=== PATIENT | male | born 1985 | race Caucasian/White ===

== ENCOUNTER 2016-12-31 18:35 | Emergency (ER) | payer BC, OTHER ==
[~2016-12-31] VITALS: Ht 175.3 cm; Wt 113.6 kg
[2016-12-31 18:35] VITALS: BP 162/98
[2016-12-31] MEDS ORDERED: CARB200T98 (18:50)
[2016-12-31] MEDS ORDERED: IBUPROFEN 800 MG TAB PO ONE (21:00)
--- NOTE | 2016-12-31 22:10 | REPUSA ---
CLINICAL HISTORY: Pain. COMMENTS: Real time sonography with duplex doppler of the right lower extremity was performed with attention to the major deep venous structures. Evaluation reveals the right common femoral, superficial femoral and popliteal veins to be completely compressible without intraluminal thrombus. There is normal spontaneous phasic flow and augmentation . The greater saphenous/common femoral vein junction is patent. IMPRESSION: No evidence of DVT in right lower extremity. Thank you for your kind referral of this patient.
--- NOTE | 2017-01-01 01:21 | REP ---
Clinical: Pain . Technique: AP, lateral, bilateral oblique views right ankle . Findings: No acute fracture or dislocation. Skeletal structures and joint spaces are intact and normal. Ankle mortise appears stable. No subcutaneous emphysema or radiodense foreign body. Impression: Normal right ankle radiograph series. Signed by Frantz Cuevas MD 01/01/2017 01:12 A
== END 2016-12-31 22:00 | disposition home or self-care (01) ==
LOC: M ED 18:35
DX: M25.571 Pain in right ankle and joints of right foot (principal); M25.471 Effusion, right ankle

== ENCOUNTER → 2017-04-19 | Outpatient (CLI) | payer BC ==
[~2017-04-19] MED LIST: CARB200T98
[2017-04-19 13:01] LABS: BASO # 0.1 10^3/uL (0.0-0.2); BASO % 1.2 % (0.0-1.0); EOS # 0.2 10^3/uL (0.0-0.50); EOS % 4.1 % (0.0-3.0); IMMATURE GRANULOCYTE % 0.3 % (0-0); LYMPH # 1.7 10^3/uL (1.5-6.5); LYMPH % 29.1 % (24.0-44.0); MEAN CORPUSCULAR HEMOGLOBIN 28.3 pg (27.0-33.0); MEAN CORPUSCULAR HGB CONC 32.8 g/dl (32.0-36.5); MEAN CORPUSCULAR VOLUME 86.1 fl (80.0-96.0); MONO # 0.4 10^3/uL (0.0-0.8); MONO % 7.1 % (0.0-5.0); NEUTROPHILS # 3.4 10^3/uL (1.8-7.7); NEUTROPHILS % 58.2 % (36.0-66.0); PLATELET COUNT, AUTOMATED 280 10^3/uL (150-450); RED CELL DISTRIBUTION WIDTH 12.8 % (11.5-14.5); WHITE BLOOD COUNT 5.8 10^3/uL (4.0-10.0)
[2017-04-19 13:30] LABS: ALBUMIN 3.9 GM/DL (3.2-5.2); ALBUMIN/GLOBULIN RATIO 1.26 (1.00-1.93); ALKALINE PHOSPHATASE 109 U/L (45-117); ALT/SGPT 55 U/L (12-78); ANION GAP 5 MEQ/L (8-16); AST/SGOT 26 U/L (7-37); BILIRUBIN,TOTAL 0.3 MG/DL (0.2-1.0); BLOOD UREA NITROGEN 21 MG/DL (7-18); CALCIUM LEVEL 9.5 MG/DL (8.5-10.1); CARBON DIOXIDE LEVEL 29 MEQ/L (21-32); CHLORIDE LEVEL 105 MEQ/L (98-107); CHOLESTEROL LEVEL 230 MG/DL (<200); CREATININE FOR GFR 0.87 MG/DL (0.70-1.30); FREE T4 0.98 NG/DL (0.76-1.46); GLOMERULAR FILTRATION RATE > 60.0 (>60); GLUCOSE, FASTING 86 MG/DL (70-105); POTASSIUM SERUM 4.9 MEQ/L (3.5-5.1); SODIUM LEVEL 139 MEQ/L (136-145); TRIGLYCERIDES LEVEL 82 MG/DL (<150)
== END ==
LOC: M WUC 09:09
PROVIDERS: ATTEND Nurse Practitioner Family
DX: E66.01 Morbid (severe) obesity due to excess calories (principal); R10.30 Lower abdominal pain, unspecified; Z13.220 Encounter for screening for lipoid disorders

== ENCOUNTER → 2018-02-23 | Outpatient (REF) | payer BC ==
[2018-02-23 16:41] LABS: ALBUMIN 3.9 GM/DL (3.2-5.2); ALBUMIN/GLOBULIN RATIO 1.15 (1.00-1.93); ALKALINE PHOSPHATASE 101 U/L (45-117); ALT/SGPT 46 U/L (12-78); ANION GAP 6 MEQ/L (8-16); AST/SGOT 21 U/L (7-37); BILIRUBIN,TOTAL 0.5 MG/DL (0.2-1.0); BLOOD UREA NITROGEN 16 MG/DL (7-18); CALCIUM LEVEL 8.8 MG/DL (8.5-10.1); CARBON DIOXIDE LEVEL 29 MEQ/L (21-32); CHLORIDE LEVEL 107 MEQ/L (98-107); CHOLESTEROL LEVEL 200 MG/DL (<200); CREATININE FOR GFR 0.88 MG/DL (0.70-1.30); GLOMERULAR FILTRATION RATE > 60.0 (>60); GLUCOSE, FASTING 78 MG/DL (70-100); HDL CHOLESTEROL 50 MG/DL (>40); LDL CHOLESTEROL 132 MG/DL (<100); NON-HDL-C 150 MG/DL; POTASSIUM SERUM 4.1 MEQ/L (3.5-5.1); SODIUM LEVEL 142 MEQ/L (136-145); TOTAL PROTEIN 7.3 GM/DL (6.4-8.2); TRIGLYCERIDES LEVEL 89 MG/DL (<150)
== END ==
LOC: M LABNEURO 14:27
DX: E78.5 Hyperlipidemia, unspecified (principal)
CPT/HCPCS: 80053

== ENCOUNTER → 2019-03-16 | Outpatient (CLI) | payer BC ==
--- NOTE | 2019-03-16 17:37 | REP ---
Duplex extremity venous ultrasound: Right lower extremity. History: Pain and swelling right lower extremity. Rule out DVT. Findings: The deep veins are anechoic and fully compressible from the groin to the popliteal fossa in the right lower extremity. Color flow imaging is homogeneous. Spectral Doppler interrogation demonstrates intact respiratory variation in flow and normal manual augmentation of flow. There is no evidence of deep vein thrombosis. Impression: Negative right lower extremity duplex venous ultrasound. No evidence of deep vein thrombosis. Electronically Signed by Paulino Chatman MD 03/16/2019 06:51 P
== END ==
LOC: M RAD 16:07
PROVIDERS: ATTEND Physician Assistant Surgical
DX: M79.661 Pain in right lower leg (principal)

== ENCOUNTER → 2019-05-24 | Outpatient (CLI) | payer BC ==
[2019-05-24 17:23] LABS: BASO # 0.1 10^3/uL (0.0-0.2); BASO % 0.8 % (0.0-1.0); EOS # 0.2 10^3/uL (0.0-0.5); EOS % 3.8 % (0.0-3.0); HEMATOCRIT 44.4 % (42.0-52.0); HEMOGLOBIN 14.4 g/dl (13.5-17.5); LYMPH # 1.9 10^3/uL (1.5-5.0); LYMPH % 31.5 % (24.0-44.0); MEAN CORPUSCULAR HEMOGLOBIN 28.3 pg (27.0-33.0); MEAN CORPUSCULAR HGB CONC 32.4 g/dl (32.0-36.5); MEAN CORPUSCULAR VOLUME 87.4 fl (80.0-96.0); MONO # 0.5 10^3/uL (0.0-0.8); MONO % 7.7 % (0.0-5.0); NEUTROPHILS # 3.4 10^3/uL (1.5-8.5); NEUTROPHILS % 55.7 % (36.0-66.0); PLATELET COUNT, AUTOMATED 260 10^3/uL (150-450); RED BLOOD COUNT 5.08 10^6/uL (4.30-6.10); WHITE BLOOD COUNT 6.1 10^3/uL (4.0-10.0)
[2019-05-24 17:41] LABS: ALBUMIN 3.8 GM/DL (3.2-5.2); ALT/SGPT 63 U/L (12-78); BILIRUBIN,TOTAL 0.7 MG/DL (0.2-1.0); BLOOD UREA NITROGEN 14 MG/DL (7-18); CALCIUM LEVEL 8.9 MG/DL (8.5-10.1); CARBON DIOXIDE LEVEL 27 MEQ/L (21-32); CHLORIDE LEVEL 105 MEQ/L (98-107); CHOLESTEROL LEVEL 213 MG/DL (<200); CHOLESTEROL RISK RATIO 4.346 (<5); CREATININE FOR GFR 0.83 MG/DL (0.70-1.30); GLOMERULAR FILTRATION RATE > 60.0 (>60); GLUCOSE, FASTING 83 MG/DL (70-100); HDL CHOLESTEROL 49 MG/DL (>40); LDL CHOLESTEROL 147 MG/DL (<100); NON-HDL-C 164 MG/DL; POTASSIUM SERUM 4.1 MEQ/L (3.5-5.1); SODIUM LEVEL 139 MEQ/L (136-145); TOTAL PROTEIN 6.5 GM/DL (6.4-8.2); TRIGLYCERIDES LEVEL 87 MG/DL (<150)
== END ==
LOC: M WUC 14:19
PROVIDERS: ATTEND Nurse Practitioner Family
DX: Z00.00 Encounter for general adult medical examination without abnormal findings (principal)

== ENCOUNTER → 2019-07-25 | Outpatient (REF) | payer BC | LOC: M LAB REF 17:02 | PROVIDERS: ATTEND Physician Assistant Medical | DX: R50.9 Fever, unspecified (principal) ==

== ENCOUNTER → 2019-08-19 | Outpatient (REF) | payer BC | LOC: M LAB REF 15:27 | PROVIDERS: ATTEND Physician Assistant | DX: Z11.59 Encounter for screening for other viral diseases (principal); R50.9 Fever, unspecified | CPT/HCPCS: 87486; 87581; 87633; 87798; U0002 ==

== ENCOUNTER → 2020-04-07 | Outpatient (REF) | payer BC | LOC: M WUC 19:49 | PROVIDERS: ATTEND Physician Assistant | DX: J02.9 Acute pharyngitis, unspecified (principal) ==

== ENCOUNTER 2020-04-11 20:10 | Emergency (ER) | payer BC ==
[~2020-04-11] VITALS: Ht 175.3 cm; Wt 104.4 kg
[2020-04-11] MEDS ORDERED: NS 1,000 ML IV ONE (21:00)
[2020-04-11 21:01] LABS: BASO # 0.1 10^3/uL (0.0-0.2); BASO % 0.8 % (0.0-1.0); EOS # 0.3 10^3/uL (0.0-0.5); EOS % 3.9 % (0.0-3.0); HEMATOCRIT 46.8 % (42.0-52.0); HEMOGLOBIN 15.2 g/dl (13.5-17.5); LYMPH # 2.5 10^3/uL (1.5-5.0); LYMPH % 28.4 % (24.0-44.0); MEAN CORPUSCULAR HEMOGLOBIN 27.8 pg (27.0-33.0); MEAN CORPUSCULAR HGB CONC 32.5 g/dl (32.0-36.5); MEAN CORPUSCULAR VOLUME 85.7 fl (80.0-96.0); MONO # 0.6 10^3/uL (0.0-0.8); MONO % 6.8 % (0.0-5.0); NEUTROPHILS # 5.2 10^3/uL (1.5-8.5); NEUTROPHILS % 59.6 % (36.0-66.0); PLATELET COUNT, AUTOMATED 286 10^3/uL (150-450); RED BLOOD COUNT 5.46 10^6/uL (4.30-6.10); WHITE BLOOD COUNT 8.7 10^3/uL (4.0-10.0)
[2020-04-11 21:12] LABS: INR 0.93; PROTHROMBIN TIME 12.7 SECONDS (12.5-14.3)
--- NOTE | 2020-04-11 21:14 | REPVR ---
PROCEDURE INFORMATION: Exam: XR Chest, 2 Views Exam date and time: 04/11/2020 9:03 PM Age: 34 years old Clinical indication: Shortness of breath; Additional info: Altered mental status TECHNIQUE: Imaging protocol: XR of the chest Views: 2 views. COMPARISON: CR Chest, 2 view PA, Lat 08/23/2014 9:25 PM FINDINGS: Lungs: Unremarkable. No consolidation. Pleural space: Unremarkable. No pleural effusion. No pneumothorax. Heart/Mediastinum: The heart and mediastinum are unchanged. Bones/joints: Unremarkable. Soft tissues: There are generous overlying soft tissues. IMPRESSION: Negative chest without significant change from 08/23/2014. Electronically signed by: Samm Pepper On 04/11/2020 21:14:21 PM
[2020-04-11 21:32] LABS: ALBUMIN 3.9 GM/DL (3.2-5.2); ALT/SGPT 59 U/L (12-78); BILIRUBIN,DIRECT 0.1 MG/DL (0.0-0.2); BILIRUBIN,TOTAL 0.5 MG/DL (0.2-1.0); BLOOD UREA NITROGEN 19 MG/DL (7-18); CALCIUM LEVEL 9.2 MG/DL (8.5-10.1); CARBON DIOXIDE LEVEL 30 MEQ/L (21-32); CHLORIDE LEVEL 102 MEQ/L (98-107); CK-MB VALUE MASS < 1.0 NG/ML (<3.6); CPK CREATINE PHOSPHOKINASE 123 U/L (39-308); CREATININE FOR GFR 1.04 MG/DL (0.70-1.30); GLOMERULAR FILTRATION RATE > 60.0 (>60); GLUCOSE, FASTING 143 MG/DL (70-100); LIPASE 73 U/L (73-393); MB/CK RELATIVE INDEX 0.81 (< OR =4); POTASSIUM SERUM 3.9 MEQ/L (3.5-5.1); SODIUM LEVEL 139 MEQ/L (136-145); TOTAL PROTEIN 7.3 GM/DL (6.4-8.2); TROPONIN I < 0.02 NG/ML (< 0.10)
--- NOTE | 2020-04-11 22:35 | REPVR ---
PROCEDURE INFORMATION: Exam: CT Head Without Contrast Exam date and time: 04/11/2020 10:22 PM Age: 34 years old Clinical indication: Altered mental status/memory loss; Additional info: Altered mental status/staring spell TECHNIQUE: Imaging protocol: Computed tomography of the head without contrast. Radiation optimization: All CT scans at this facility use at least one of these dose optimization techniques: automated exposure control; mA and/or kV adjustment per patient size (includes targeted exams where dose is matched to clinical indication); or iterative reconstruction. COMPARISON: CT Head without contrast 08/23/2014 9:18 PM FINDINGS: Brain: Normal. No hemorrhage. Unremarkable white matter. No mass effect. Cerebral ventricles: No ventriculomegaly. Bones/joints: Unremarkable. No acute fracture. Paranasal sinuses: Visualized sinuses are unremarkable. No fluid levels. Mastoid air cells: Visualized mastoid air cells are well aerated. Soft tissues: Unremarkable. IMPRESSION: Negative noncontrast head CT without change from 08/23/2014. Electronically signed by: Samm Pepper On 04/11/2020 22:34:50 PM
[2020-04-11 23:05] LABS: AMPHETAMINES LEVEL URINE NEGATIVE (NEGATIVE); BARBITURATES URINE NEGATIVE (NEGATIVE); BENZODIAZEPINES URINE NEGATIVE (NEGATIVE); CANNABINOIDS URINE NEGATIVE (NEGATIVE); COCAINE METABOLITE URINE NEGATIVE (NEGATIVE); METHADONE URINE NEGATIVE (NEGATIVE); OPIATES URINE NEGATIVE (NEGATIVE); PHENCYCLIDINE URINE NEGATIVE (NEGATIVE)
[2020-04-12 00:55] VITALS: BP 128/71
--- NOTE | 2020-04-13 18:46 | ECGEPIP ---
[facility] - ED Test Date: 2020-04-11 Pat Name: RENÉ CHIU Department: Room: - Gender: Male Ekg Tech: LR : 1985 Requested By: KAREN Farias Order Number: [id number] Reading MD: Alexia Ortiz Measurements Intervals [place] Rate: 95 P: 26 DE: 145 QRS: 8 QRSD: 89 T: 24 QT: 324 QTc: 409 Interpretive Statements SINUS RHYTHM INCREASED RATE 08/23/14 Electronically Signed on 04-13-2020 18:46:12 EST by Alexia Ortiz
== END 2020-04-12 01:06 | disposition home or self-care (01) ==
LOC: M ED 20:10
DX: R41.82 Altered mental status, unspecified (principal); Z86.69 Personal history of other diseases of the nervous system and sense organs

== ENCOUNTER 2020-07-01 11:26 | Emergency (ER) | payer BC ==
[~2020-07-01] VITALS: Ht 175.3 cm; Wt 147.9 kg
--- OUTSIDE RECORDS SUMMARY | 2020-07-01 11:33 | CCD | Continuity of Care Document ---
Author Author Easton MARLOW [place] Organization Unknown Address [address] [place] [address] [place] [address] Phone [phone] Care Team Providers Care Field Coordinator Name Role Phone Joaquin Co Publi AUTM [phone] Problems Description No Information Available Social History Type Date Description Comments Sex Unknown Smokeless Tobacco Never Used Smokeless Tobacco ETOH Use Occasionally consumes alcohol Tobacco Use Start: Unknown Patient has never smoked Tobacco Use Start: Unknown The Patient Has Never Vaped Smoking Status Reviewed: 05/31/20 The Patient Has Never Vaped Allergies, Adverse Reactions, Alerts Description No Known Drug Allergies Medications Active Medications SIG Qnty Indications Ordering Provide r Date Albuterol Sulfate HFA 108(90Base) mcg/Act Aerosol 1 puff inhaled 3 x per day prn for sob/wheezing 8.500gm Deandre Buck JR., M.D. 03/06/2020 Carbamazepine ER 200mg Caps ER 12H R as needed - has not taken in a while Unknown Amitriptyline HCL 150mg Tablets as needed - has not taken in a while Unknown Claritin 10mg Tablets 1 by mouth every day Unknown Tylenol at 2p Unknown History Medications Doxycycline Hyclate 100mg Tablets 1 tab by mouth twice a day x 10 days 20tabs Deandre Zavala M.D. 03/06/2020 - 03/06/2020 Levofloxacin 750mg Tablets 1 tab daily x 5 days 5tabs Deandre Buck JR., M.D. 10/2019 - 05/02/2020 Immunizations Description No Information Available Vital Signs Date Vital Result Comment 05/31/2020 5:29pm BP Systolic 130 mmHg BP Diastolic 87 mmHg Heart Rate 81 /min Respiratory Rate 16 /min O2 % BldC Oximetry 96 % Body Temperature 98.1 F Weight 290.00 lb Height 69 inches 5'9" BMI (Body Mass Index) 42.8 kg/m2 Pain Level 9 04/07/2020 5:19pm BP Systolic 126 mmHg BP Diastolic 86 mmHg Heart Rate 97 /min Respiratory Rate 16 /min O2 % BldC Oximetry 98 % Body Temperature 98.1 F Weight 290.00 lb Height 69 inches 5'9" BMI (Body Mass Index) 42.8 kg/m2 Pain Level 6 Results Test Acquired Date Facility Test Result H/L Range Note Laboratory test finding 04/07/2020 [facility] [address] [id number] [phone] Throat Culture FULL REPORT IN L <SEE NOTE> Normal 1 1 FULL REPORT IN LAB NOTES (eC W and [facility]). NORMAL ROLANDO PRESENT Procedures Description No Information Available Medical Devices Description No Information Available Encounters Type Date Location Provider Dx Diagnosis Office Visit 05/31/2020 5:40p Main Office WANDA Barajas J06 .9 Acute upper respiratory infection, unspecified Z20.828 Contact w and exposure to ot h viral communicable diseases Office Visit 04/07/2020 5:35p Main Office WANDA Silver J06.9 Acute upper respiratory infection, unspecified Z20.828 Contact w and exposure to ot h viral communicable diseases J02.9 Acute pharyngitis, unspecifi ed Office Visit 03/06/2020 5:35p Main Office WANDA Olivo J0 6.9 Acute upper respiratory infection, unspecified Z20.828 Contact w and exposure to ot h viral communicable diseases Assessments Date Code Description Provider 05/31/2020 J06.9 Acute upper respiratory infectio n, unspecified WANDA Barajas 05/31/2020 Z20.828 Contact with and (dodson spected) exposure to other viral communicable diseases WANDA Barajas 04/07/2020 J06.9 Acute upper respiratory infectio n, unspecified WANDA Silver 04/07/2020 Z20.828 Contact with and (dodson spected) exposure to other viral communicable diseases WANDA Silver 04/07/2020 J02.9 Acute pharyngitis, unspecified J WANDA Reeves 03/06/2020 J06.9 Acute upper respiratory infectio n, unspecified WANDA Olivo 03/06/2020 Z20.828 Contact with and (dodson spected) exposure to other viral communicable diseases WANDA Olivo Plan of Treatment No Information Available Functional Status Description No Information Available Mental Status Description No Information Available Referrals Description No Information Available
--- OUTSIDE RECORDS SUMMARY | 2020-07-01 11:33 | CCD | Continuity of Care Document ---
Author Author Easton MARLOW [place] Organization Unknown Address [address] [place] [address] [place] [address] Phone [phone] Care Team Providers Care Credit Collections Specialist Name Role Phone Joaquin Co Publi AUTM [phone] Problems Description No Information Available Social History [...] H/L Range Note Laboratory test finding 04/07/2020 [facility] [address] [id number] [phone] Throat Culture FULL REPORT IN L <SEE [...]
--- OUTSIDE RECORDS SUMMARY | 2020-07-01 11:34 | CCD | Continuity of Care Document ---
Author Author Easton DHILLON P.A.-C. Organization Unknown Address [address] [place] [address] Phone [phone] Care Team Providers Care Heavy Forger Name Role Phone DamienfrankieOsorio [employer]MARKETING [employer]DR[employer]ISER AUTM [phone] Problems Description No Information Available Social History Type Date Description Comments Sex Unknown Tobacco Use Start: Unknown Patient has never smoked Tobacco Use Start: Unknown He rarely drinks alcohol Allergies, Adverse Reactions, Alerts Description No Known Drug Allergies Medications Active Medications SIG Qnty Indications Ordering Provide r Date Ativan 0.5mg Tablets 1 by mouth one hour prior to mri, may repeat once if necessary 2tabs R40.4 Charito Qureshi M.D. 04/17/2020 Sumatriptan Succinate 100mg Tablet s Take 1/2 To 1 Tablet By Mouth AT On Set Of Headache, May Repeat In Two Hours If Necessary Maximum Daily Dose = Two Tablets 9tabs Charito Qureshi M.D. 10/15/2012 Immunizations Description No Information Available Vital Signs Date Vital Result Comment 04/17/2020 7:09am BP Systolic 120 mmHg BP Diastolic 90 mmHg Heart Rate 76 /min Respiratory Rate 16 /min 07/19/2019 9:46am BP Systolic 110 mmHg BP Diastolic 80 mmHg Heart Rate 76 /min Respiratory Rate 16 /min Results Description No Information Available Procedures Description No Information Available Medical Devices Description No Information Available Encounters Type Date Location Provider Dx Diagnosis Office Visit 04/17/2020 9:30a Main office - [facility] Kim goyal P.A.-C. R40.4 Transient alteration of awareness F41.1 Generalized anxiety disorder Assessments Date Code Description Provider 04/17/2020 R40.4 Transient alteration of awarenes s Kim Dhillon P.A.-C. 04/17/2020 F41.1 Generalized anxiety disorder Nadira Dhillon P.A.-C. Plan of Treatment Future Appointment(s):* 07/18/2020 8:15 am - Kim Dhillon P.A.-C. at Main office [facility] * 06/12/2020 8:15 am - EEG at [facility] 04/17/2020 - Kim Dhillon P.A.-C.* R40.4 Transient alteration of awareness* New Medication:* Ativan 0.5 mg - 1 by mouth one hour prior to mri, may repeat once if necessary * Comments:* It sounds as though his episode was related to a severe laughing episode with decreased oxygenation. Schedule MRI brain and EEG. He was advised not to drive if he is not feeling well. There was no LOC. Prescription for Ativan to take prior to MRI sent eRx. CUSTOMER PRICING MANAGER # [id number]. * F41.1 Generalized anxiety disorder* Comments:* He admits that his anxiety is not always controlled. He may need to consider returning to behavioral health. * Follow up:* 3 months Functional Status Description No Information Available Mental Status Description No Information Available Referrals Description No Information Available
--- OUTSIDE RECORDS SUMMARY | 2020-07-01 11:34 | CCD | Continuity of Care Document ---
Author Easton Cagle Organization Unknown Address [address] [place] [address] [place] [address] Phone [phone] Care Team Providers Care Bleacher Lard Name Role Phone Joaquin Co Publi AUTM [phone] Problems Description No Information Available Social History Type Date Description Comments Sex Unknown ETOH Use Occasionally consumes alcohol Tobacco Use Start: Unknown Patient has never smoked Smoking Status Reviewed: 04/07/20 Patient has never smoked Allergies, Adverse Reactions, Alerts Description No Known Drug Allergies Medications Active Medications SIG Qnty Indications Ordering Provide r Date Albuterol Sulfate HFA 108(90Base) mcg/Act Aerosol 1 puff inhaled 3 x per day prn for sob/wheezing 8.500gm Deandre Buck JR., M.D. 03/06/2020 Levofloxacin 750mg Tablets 1 tab daily x 5 days 5tabs Deandre Buck JR., M.D. 10/2019 Carbamazepine ER 200mg Caps ER 12H R as needed - has not taken in a while Unknown Amitriptyline HCL 150mg Tablets as needed - has not taken in a while Unknown Claritin 10mg Tablets 1 by mouth every day Unknown History Medications Doxycycline Hyclate 100mg Tablets 1 tab by mouth twice a day x 10 days 20tabs Deandre Zavala M.D. 03/06/2020 - 03/06/2020 Immunizations Description No Information Available Vital Signs Date Vital Result Comment 04/07/2020 5:19pm BP Systolic 126 mmHg BP Diastolic 86 mmHg Heart Rate 97 /min Respiratory Rate 16 /min O2 % BldC Oximetry 98 % Body Temperature 98.1 F Weight 290.00 lb Height 69 inches 5'9" BMI (Body Mass Index) 42.8 kg/m2 Pain Level 6 03/06/2020 6:33pm BP Systolic 140 mmHg BP Diastolic 88 mmHg Heart Rate 95 /min O2 % BldC Oximetry 98 % Body Temperature 98.4 F Weight 285.00 lb Height 69 inches 5'9" BMI (Body Mass Index) 42.1 kg/m2 Pain Level 5 Results Test Acquired Date Facility Test Result H/L Range Note Laboratory test finding 04/07/2020 [address] [place] [id number] [phone] Throat Culture FULL REPORT IN L <SEE NOTE> Normal 1 1 FULL REPORT IN LAB NOTES (eC W and [facility]). NORMAL ROLANDO PRESENT Procedures Description No Information Available Medical Devices Description No Information Available Encounters Type Date Location Provider Dx Diagnosis Office Visit 04/07/2020 5:35p Main Office WANDA Silver J06.9 Acute upper respiratory infection, unspecified Z20.828 Contact w and exposure to ot h viral communicable diseases J02.9 Acute pharyngitis, unspecifi ed Office Visit 03/06/2020 5:35p Main Office WANDA Olivo J0 6.9 Acute upper respiratory infection, unspecified Z20.828 Contact w and exposure to ot h viral communicable diseases Assessments Date Code Description Provider 04/07/2020 J06.9 Acute upper respiratory infectio n, [...]
--- OUTSIDE RECORDS SUMMARY | 2020-07-01 11:34 | CCD ---
Author Author [facility] Organization [facility] Address Unknown Phone Unavailable Support Name Relationship Address Phone NECHAY PAPER Next Of Kin [address] [place] [address] YARED CHIU Next Of Kin [address] [facility] [address] [place] [phone] Dilpolly DDTheo, Nathalie Next Of Kin [address] [place] [phone] Dilpolly DDS, Nathalie Next Of Kin [address] [place] [phone] [place] [address] YARED GLOVER Next Of Kin [address] [facility] [address] [place] [address] WATNCTYSD* Next Of Kin [address] [place] [address] RENÉ CHIU SR Next Of Kin [address] [place] [phone] BRADEN CHOPPER Next Of Kin Unknown Unavailable UNKNOWN Next Of Kin Unknown Unavailable PRICECHOP Next Of Kin [address] [place] [address] RENÉ CHIU Next Of Kin [address] o [address] [place] [address] Sebastián CHIU Next Of Kin [address] [place] [address] YARED CHIU ECON [address] [place] [phone] Care Team Providers Care Glass Inserter Name Role Phone Marnie Houston PA-C Unavailable Unavailabl e Marnie Houston PA-C Unavailable Unavailabl e Fish, [facility], PA-C Unavailable Unavailabl e Fish, [facility], PA-C Unavailable Unavailabl e Fish, [facility], PA-C Unavailable Unavailabl e Fish, [facility], PA-C Unavailable Unavailabl e Fish, [facility], PA-C Unavailable Unavailabl e Fish, [facility], PA-C Unavailable Unavailabl e Fish, [facility], PA-C Unavailable Unavailabl e Fish, [facility], PA-C Unavailable Unavailabl e Fish, [facility], PA-C Unavailable Unavailabl e Fish, [facility], PA-C Unavailable Unavailabl e Fish, [facility], PA-C Unavailable Unavailabl e Fish, [facility], PA-C Unavailable Unavailabl e Fish, [facility], PA-C Unavailable Unavailabl e Fish, [facility], PA-C Unavailable Unavailabl e Fish, [facility], PA-C Unavailable Unavailabl e Fish, [facility], PA-C Unavailable Unavailabl e Fish, [facility], PA-C Unavailable Unavailabl e Fish, [facility], PA-C Unavailable Unavailabl e Fish, [facility], PA-C Unavailable Unavailabl e Fish, [facility], PA-C Unavailable Unavailabl e Fish, [facility], PA-C Unavailable Unavailabl e Fish, [facility], PA-C Unavailable Unavailabl e Fish, [facility], PA-C Unavailable Unavailabl e Fish, [facility], PA-C Unavailable Unavailabl e Fish, [facility], PA-C Unavailable Unavailabl e Fish, [facility], PA-C Unavailable Unavailabl e Fish, [facility], PA-C Unavailable Unavailabl e Fish, [facility], PA-C Unavailable Unavailabl e Fish, [facility], PA-C Unavailable Unavailabl e Fish, [facility], PA-C Unavailable Unavailabl e Fish, [facility], PA-C Unavailable Unavailabl e Trickey, J Kim PA Unavailable Unavailable Trickey, J Kim PA Unavailable Unavailable Trickey, J Kim PA Unavailable Unavailable Trickey, J Kim PA Unavailable Unavailable Trickey, J Kim PA Unavailable Unavailable Trickey, J Kim PA Unavailable Unavailable Trickey, J Kim PA Unavailable Unavailable Trickey, J Kim PA Unavailable Unavailable Trickey, J Kim PA Unavailable Unavailable Trickey, J Kim PA Unavailable Unavailable Trickey, J Kim PA Unavailable Unavailable Trickey, J Kim PA Unavailable Unavailable Trickey, J Kim PA Unavailable Unavailable Trickey, J Kim PA Unavailable Unavailable Trickey, J Kim PA Unavailable Unavailable Trickey, J Kim PA Unavailable Unavailable Trickey, J Kim PA Unavailable Unavailable Trickey, J Kim PA Unavailable Unavailable Trickey, J Kim PA Unavailable Unavailable Trickey, J Kim PA Unavailable Unavailable Trickey, J Kim PA Unavailable Unavailable Trickey, J Kim PA Unavailable Unavailable Trickey, J Kim PA Unavailable Unavailable Trickey, J Kim PA Unavailable Unavailable Trickey, J Kim PA Unavailable Unavailable Trickey, J Kim PA Unavailable Unavailable Trickey, J Kim PA Unavailable Unavailable Trickey, J Kim PA Unavailable Unavailable Trickey, J Kim PA Unavailable Unavailable Trickey, J Kim PA Unavailable Unavailable Trickey, J Kim PA Unavailable Unavailable Trickey, J Kim PA Unavailable Unavailable Trickey, J Kim PA Unavailable Unavailable Trickey, J Kim PA Unavailable Unavailable Trickey, J Kim PA Unavailable Unavailable Trickey, J Kim PA Unavailable Unavailable Trickey, J Kim PA Unavailable Unavailable Trickey, J Kim PA Unavailable Unavailable Trickey, J Kim PA Unavailable Unavailable Trickey, J Kim PA Unavailable Unavailable Trickey, J Kim PA Unavailable Unavailable Trickey, J Kim PA Unavailable Unavailable Trickey, J Kim PA Unavailable Unavailable Trickey, J Kim PA Unavailable Unavailable Trickey, J Kim PA Unavailable Unavailable Trickey, J Kim PA Unavailable Unavailable Trickey, J Kim PA Unavailable Unavailable Trickey, J Kim PA Unavailable Unavailable Trickey, J Kim PA Unavailable Unavailable Trickey, J Kim PA Unavailable Unavailable Trickey, J Kim PA Unavailable Unavailable Trickey, J Kim PA Unavailable Unavailable Marnie Houston MPAS, PA-C Unavailable Unavailabl e Marnie Houston MPAS, PA-C Unavailable Unavailabl e Marnie Houston MPAS, PA-C Unavailable Unavailabl e Fish, [facility], PA-C Unavailable Unavailabl e Fish, [facility], PA-C Unavailable Unavailabl e Fish, [facility], PA-C Unavailable Unavailabl e Fish, [facility], PA-C Unavailable Unavailabl e Fish, [facility], PA-C Unavailable Unavailabl e Fish, [facility], PA-C Unavailable Unavailabl e Fish, [facility], PA-C Unavailable Unavailabl e Fish, [facility], PA-C Unavailable Unavailabl e Fish, [facility], PA-C Unavailable Unavailabl e Fish, [facility], PA-C Unavailable Unavailabl e Fish, [facility], PA-C Unavailable Unavailabl e Fish, [facility], PA-C Unavailable Unavailabl e Fish, [facility], PA-C Unavailable Unavailabl e Fish, [facility], PA-C Unavailable Unavailabl e Fish, [facility], PA-C Unavailable Unavailabl e Fish, [facility], PA-C Unavailable Unavailabl e Fish, [facility], PA-C Unavailable Unavailabl e Fish, [facility], PA-C Unavailable Unavailabl e Fish, [facility], PA-C Unavailable Unavailabl e Fish, [facility], PA-C Unavailable Unavailabl e Fish, [facility], PA-C Unavailable Unavailabl e Fish, [facility], PA-C Unavailable Unavailabl e Fish, [facility], PA-C Unavailable Unavailabl e Fish, [facility], PA-C Unavailable Unavailabl e Fish, [facility], PA-C Unavailable Unavailabl e Fish, [facility], PA-C Unavailable Unavailabl e Fish, [facility], PA-C Unavailable Unavailabl e Fish, [facility], PA-C Unavailable Unavailabl e Fish, [facility], PA-C Unavailable Unavailabl e Fish, [facility], PA-C Unavailable Unavailabl e Campanaro, Mare Qiana PA Unavailable Unavailable Campanaro, Mare Qiana PA Unavailable Unavailable Campanaro, Mare Qiana PA Unavailable Unavailable Campanaro, Mare Qiana PA Unavailable Unavailable Campanaro, Mare Qiana PA Unavailable Unavailable Campanaro, Mare Qiana PA Unavailable Unavailable Campanaro, Mare Qiana PA Unavailable Unavailable Campanaro, Mare Qiana PA Unavailable Unavailable Campanaro, Mare Qiana PA Unavailable Unavailable Campanaro, Mare Qiana PA Unavailable Unavailable Campanaro, Mare Qiana PA Unavailable Unavailable Campanaro, Mare Qiana PA Unavailable Unavailable Campanaro, Mare Qiana PA Unavailable Unavailable Campanaro, Mare Qiana PA Unavailable Unavailable Campanaro, Mare Qiana PA Unavailable Unavailable Campanaro, Mare Qiana PA Unavailable Unavailable Campanaro, Mare Qiana PA Unavailable Unavailable Campanaro, Mare Qiana PA Unavailable Unavailable Dille, E Nathalie DDS Unavailable Unavailable Dille, E Nathalie DDS Unavailable Unavailable Dille, E Nathalie DDS Unavailable Unavailable Dilpolly, E Nathalie DDS Unavailable Unavailable Jarrett Olivas MD Unavailable Unavailable Jarrett Olivas MD Unavailable Unavailable Jarrett Olivas MD Unavailable Unavailable Jarrett Olivas MD Unavailable Unavailable Jarrett Olivas MD Unavailable Unavailable Jarrett Olivas MD Unavailable Unavailable Jarrett Olivas MD Unavailable Unavailable Jarrett Olivas MD Unavailable Unavailable Jarrett Olivas MD Unavailable Unavailable Jarrett Olivas MD Unavailable Unavailable Jarrett Olivas MD Unavailable Unavailable Jarrett Olivas MD Unavailable Unavailable Jarrett lOivas MD Unavailable Unavailable Jarrett Olivas MD Unavailable Unavailable Jarrett Olivas MD Unavailable Unavailable Jarrett Olivas MD Unavailable Unavailable Jarrett Olivas MD Unavailable Unavailable Jarrett Olivas MD Unavailable Unavailable Jarrett Olivas MD Unavailable Unavailable Jarrett Olivas MD Unavailable Unavailable Jarrett Olivas MD Unavailable Unavailable Jarrett Olivas MD Unavailable Unavailable Jarrett Olivas MD Unavailable Unavailable Jarrett Olivas MD Unavailable Unavailable Jarrett Olivas MD Unavailable Unavailable Jarrett Oliavs MD Unavailable Unavailable Jarrett Olivas MD Unavailable Unavailable Jarrett Olivas MD Unavailable Unavailable Vaneenenaam, Jarrett Simon MD Unavailable Unavailable Vaneenenaam, Jarrett Simon MD Unavailable Unavailable Vaneenenaam, Jarrett Simon MD Unavailable Unavailable Vaneenenaam, Jarrett Simon MD Unavailable Unavailable Vaneenenaam, Jarrett Simon MD Unavailable Unavailable Vaneenenaam, Jarrett Simon MD Unavailable Unavailable Vaneenenaam, Jarrett Simon MD Unavailable Unavailable Vaneenenaam, Jarrett Simon MD Unavailable Unavailable Vaneenenaam, Jarrett Simon MD Unavailable Unavailable Vaneenenaam, Jarrett Simon MD Unavailable Unavailable Vaneenenaam, Jarrett Simon MD Unavailable Unavailable Vaneenenaam, Jarrett Simon MD Unavailable Unavailable Vaneenenaam, Jarrett Simon MD Unavailable Unavailable Vaneenenaam, Jarrett Simon MD Unavailable Unavailable Elias, Mahogany Leigha PA Unavailable Unavailable Elias, Mahogany Leigha PA Unavailable Unavailable Elias, Mahogany Leigha PA Unavailable Unavailable Elias, Mahogany Leigha PA Unavailable Unavailable Elias, Mahogany Leigha PA Unavailable Unavailable Elias, Mahogany Leigha PA Unavailable Unavailable Elias, Mahogany Leigha PA Unavailable Unavailable Elias, Mahogany Leigha PA Unavailable Unavailable Elias, Mahogany Leigha PA Unavailable Unavailable Elias, Mahogany Leigha PA Unavailable Unavailable LETTIERE, A IVAN PA Unavailable Unavailable LETTIERE, A IVAN PA Unavailable Unavailable LETTIERE, A IVAN PA Unavailable Unavailable LETTIERE, A IVAN PA Unavailable Unavailable LETTIERE, A IVAN PA Unavailable Unavailable LETTIERE, A IVAN PA Unavailable Unavailable LETTIERE, A IVAN PA Unavailable Unavailable LETTIERE, A IVAN PA Unavailable Unavailable LETTIERE, A IVAN PA Unavailable Unavailable LETTIERE, A IVAN PA Unavailable Unavailable LETTIERE, A IVAN PA Unavailable Unavailable LETTIERE, A IVAN PA Unavailable Unavailable LETTIERE, A IVAN PA Unavailable Unavailable LETTIERE, A IVAN PA Unavailable Unavailable LETTIERE, A IVAN PA Unavailable Unavailable LETTIERE, A IVAN PA Unavailable Unavailable LETTIERE, A IVAN PA Unavailable Unavailable LETTIERE, A IVAN PA Unavailable Unavailable LETTIERE, A IVAN PA Unavailable Unavailable LETTIERE, A IVAN PA Unavailable Unavailable LETTIERE, A IVAN PA Unavailable Unavailable LETTIERE, A IVAN PA Unavailable Unavailable LETTIERE, A IVAN PA Unavailable Unavailable LETTIERE, A IVAN PA Unavailable Unavailable LETTIERE, A IVAN PA Unavailable Unavailable LETTIERE, A IVAN PA Unavailable Unavailable LETTIERE, A IVAN PA Unavailable Unavailable LETTIERE, A IVAN MUÑOZ Unavailable Unavailable LETTIERE, A IVAN MUÑOZ Unavailable Unavailable Re-disclosure Warning The records that you are about to access may contain information from federally-assisted alcohol or drug abuse programs. If such information is present, then the following federally mandated warning applies: This information has been disclosed to you from records protected by federal confidentiality rules (42 CFR part 2). The federal rules prohibit you from making any further disclosure of this information unless further disclosure is expressly permitted by the written consent of the person to whom it pertains or as otherwise permitted by 42 CFR part 2. A general authorization for the release of medical or other information is NOT sufficient for this purpose. The Federal rules restrict any use of the information to criminally investigate or prosecute any alcohol or drug abuse patient.The records that you are about to access may contain highly sensitive health information, the redisclosure of which is protected by Article 27-F of the [facility] Public Health law. If you continue you may have access to information: Regarding HIV / AIDS; Provided by facilities licensed or operated by the [facility] Office of Mental Health; or Provided by the [facility] Office for People With Developmental Disabilities. If such information is present, then the following [facility] mandated warning applies: This information has been disclosed to you from confidential records which are protected by state law. State law prohibits you from making any further disclosure of this information without the specific written consent of the person to whom it pertains, or as otherwise permitted by law. Any unauthorized further disclosure in violation of state law may result in a fine or chcf sentence or both. A general authorization for the release of medical or other information is NOT sufficient authorization for further disc losure. Family History Family Member Name Family Member Gender Family Member Status Date o f Status Description Data Source(s) Unknown Female Problem [facility] ([facility] Encounters Encounter Providers Location Date Indications Data Source(s ) Outpatient Attender: IVAN mac 05/31/2020 04:40:00 PM EST [facility] ([facility]) Outpatient Attender: Kim MUÑOZ [facility] 04/17/2020 08:30:00 AM EST [facility] ([facility]) Outpatient Attender: Leigha Peres Prim estefania 04/07/2020 04:35:00 PM EST [facility] ([facility] [place] [address] [facility] [address] 03/21/2020 12:00:00 AM EDT eCW1 ([facility]) Outpatient Attender: Qiana Peres Prim estefania 03/06/2020 05:35:00 PM EDT [facility] ([facility]) Outpatient Attender: Nathalie Butts [facility] 08/27/2019 09:01:03 P M EDT [facility] Outpatient Attender: Jarrett Olivas MD Physical Therap y 08/17/2019 03:45:00 PM EDT [facility] ([facility]) Outpatient Attender: Kim MUÑOZ [facility] 07/19/2019 07:00:00 AM EST [facility] ([facility]) Outpatient Attender: Chastity WOODALL PA-C Physical Therapy 07/06/2019 07:45:00 AM EST [facility] ([facility]) Outpatient Attender: Chastity WOODALL PA-C Physical Therapy 06/03/2019 02:15:00 PM EST [facility] ([facility]) [facility] [address] [facility] [address] 05/31/2019 12:00:00 AM EST eCW1 ([facility]) [facility] [address] [facility] [address] 05/20/2019 12:00:00 AM EST eCW1 ([facility]) Outpatient Referrer: Chastity WOODALL PA-C 05/17/2019 05:1 5:00 PM EST [facility] Outpatient Referrer: Chastity WOODALL PA-C 05/17/2019 05:1 4:00 PM EST [facility] Outpatient Referrer: Chastity WOODALL PA-C 05/17/2019 05:0 8:00 PM EST [facility] Outpatient Referrer: Chastity WOODALL PA-C 05/17/2019 05:0 8:00 PM EST [facility] Outpatient Referrer: Chastity WOODALL PA-C 05/17/2019 05:0 8:00 PM EST [facility] Outpatient Referrer: Chastity Celso WOODALL PA-C 05/17/2019 05:0 7:00 PM EST [facility] Outpatient Referrer: Chastity WOODALL PA-C 05/12/2019 09:4 4:00 AM EST [facility] Outpatient Referrer: Chastity WOODALL PA-C 05/04/2019 01:2 6:00 PM EST [facility] Immunizations Vaccine Date Status Description Data Source(s) IIV3. This is one of two codes replacing CVX 15, which is being retired. 05/20/2019 11:55:00 AM EST completed eCW1 ([facility]) Medications Medication Brand Name Start Date Product Form Dose Route Admi nistrative Instructions Pharmacy Instructions Status Indications Reaction Description Data Source(s) 0.5 mg 04/17/2020 12:00:00 AM EST tablet 2 TAKE ONE TABLET BY MOUTH ONE HOUR PRIOR TO MRI, MAY REPEAT ONCE IF NECESSARY MAXIMUM DAILY DOSE = TWO TABLETS TAKE ONE TABLET BY MOUTH ONE HOUR PRIOR TO MRI, MAY REPEAT ONCE IF NECESSARY MAXIMUM DAILY DOSE = TWO TABLETS SOLD: 04/18/2020 [facility] Lorazepam 0.5 MG Oral Tablet [Ativan] Ativan 04/17/2020 12:00:00 AM EST ORAL active MED[facility] ([facility]) Levofloxacin 750 MG Oral Tablet Levofloxacin 03/06/2020 12:00:00 AM EDT completed [facility] ([facility]) doxycycline hyclate 100 MG Oral Tablet Doxycycline Hyclate 1 12:00:00 AM EDT ORAL completed [facility] ([facility]) 90 mcg/actuation 03/06/2020 12:00:00 AM EDT HFA aerosol inha ler 8 INHALE ONE PUFF BY MOUTH THREE TIMES A DAY NEEDED FOR SHORTNESS OF BREATH OR WHEEZING INHALE ONE PUFF BY MOUTH THREE TIMES A DAY NEEDED FOR SHORTNESS OF BREATH OR WHEEZING SOLD: 03/06/2020 [facility] 60 ACTUAT Albuterol 0.09 MG/ACTUAT Metered Dose Inhaler Albu terol Sulfate HFA 03/06/2020 12:00:00 AM EDT RESPIRATORY active [facility] ([facility], [facility]) 750 mg 03/06/2020 12:00:00 AM EDT tablet 5 TAKE ONE TABLET BY MOUTH EVERY DAY FOR 5 DAYS TAKE ONE TABLET BY MOUTH EVERY DAY FOR 5 DAYS SOLD: 03/06/2020 [facility] 500 mg 02/22/2020 12:00:00 AM EDT tablet 20 TAKE ONE TABLET BY MOUTH EVERY 12 HOURS WITH FOOD FOR 10 DAYS TAKE ONE TABLET BY MOUTH EVERY 12 HOURS WITH FOOD FOR 10 DAYS SOLD: 02/22/2020 [facility] 875 mg 08/15/2019 12:00:00 AM EDT tablet 14 TAKE ONE TABLET BY MOUTH EVERY 12 HOURS FOR 7 DAYS TAKE ONE TABLET BY MOUTH EVERY 12 HOURS FOR 7 DAYS YOUSIF [facility] 875 mg 07/26/2019 12:00:00 AM EST tablet 20 TAKE ONE TABLET BY MOUTH EVERY TWELVE HOURS FOR TEN DAYS TAKE ONE TABLET BY MOUTH EVERY TWELVE HO URS FOR TEN DAYS SOLD: 07/26/2019 [facility] 500 mg 07/12/2019 12:00:00 AM EST tablet 3 TAKE ONE TABLET BY MOUTH EVERY DAY FOR 3 DAYS TAKE ONE TABLET BY MOUTH EVERY DAY FOR 3 DAYS SOLD: 07/12/2019 [facility] 20 mg 07/12/2019 12:00:00 AM EST tablet 10 TAKE ONE TABLET BY MOUTH TWICE A DAY FOR 5 DAYS TAKE ONE TABLET BY MOUTH TWICE A DAY FOR 5 DAYS SOLD: 2019 [facility] 300 mg 07/05/2019 12:00:00 AM EST capsule 20 TAKE ONE CAPSULE BY MOUTH EVERY 12 HOURS FOR 10 DAYS TAKE ONE CAPSULE BY MOUTH EVERY 12 HOURS FOR 10 DAYS S OLD: 07/05/2019 [facility] meloxicam 15 MG Oral Tablet [Mobic] Mobic 06/03/2019 12:00:00 AM EST ORAL active [facility] ([facility]) 15 mg 06/03/2019 12:00:00 AM EST tablet 30 TAKE ONE TABLET BY MOUTH EVERY DAY WITH FOOD TAKE ONE TABLET BY MOUTH EVERY DAY WITH FOOD SOLD: 06/03/2019 [facility] Insurance Providers Payer name Policy type / Coverage type Policy ID Covered alliance party ID Covered alliance party's relationship to kamara Policy Kamara Plan Information [employer] 302/307 [id number] SP [id number] [place] 302/307 [id number] SP [id number] [employer] BCBS P UNAVAILABLE S UNAV AILABLE [employer] BCBS B [id number] S [id number] EXCELLUS H [id number] Self [id number] [employer] [place] P[place] 302/307 [id number] SP [id number] EXCELLUS H [id number] Self [id number] [employer] BCYO P UNAVAILABLE S UNAV AILABLE Self Pay S UNAVAILABLE S UNAVAILA BLE D [employer] S [id number] S [id number] BS [place] [employer] [id number] Self [id number] BC/[place] Of [place] [employer] Part B [id number] Self [id number] [employer] Commercial [id number] Self [id number] BC/BS Of [place] Med[place] Part B [id number] Self [id number] [employer] [id number] Self [id number] Sliding Fee Scale P UNAVAILABLE S UNAVAILABLE BC/BS Of [place] Med[employer] Part B [id number] Self [id number] [employer] [id number] Self [id number] BC/BS Of [place] [employer] Part B [id number] Self [id number] [employer] [id number] Self [id number] BC/BS Of [place] [employer] Part B [id number] Self [id number] [employer] [id number] Self [id number] BC/BS Of [place] [employer] Part B [id number] Self [id number] [employer] [id number] Self [id number] BC/BS Of [place] [facility] Part B [id number] Self [id number] [employer] Commercial [id number] Self [id number] Medicaid Dental S UNAVAILABLE S UN AVAILABLE D [facility] P UNAVAILABLE S UNAVAILABLE D MVP P [id number] S [id number] Self Pay P [id number] S [id number] [place] P[place] 302/307 [id number] SP [id number] MVP [id number] SP [id number] MVP EXCHANGE U [id number] Self [id number] [employer] Commercial Ppo Self Pp o MVP Health Plan Commercial Self MVP [id number] SP [id number] MVP H [id number] Self [id number] MVP Commercial Self Medicaid Medicaid Self MEDICAID M [id number] MEDICAID M [id number] Self [id number] MEDICAID [id number] SP [id number] MVP H [id number] Self [id number] BCBS EMPIRE [facility] 303/803 [id number] SP [id number] SELF PAY UNAVAILABLE UNAVAILA BLE EXCELLUS H [id number] Child [id number] BCBS [place] O [id number] C [id number] [place] BC/BS P [id number] S [id number] MVP HEALTH CARE P [id number] S [id number] MVP HMO O [id number] S [id number] [facility] PHY [id number] SP [id number] Surgeries/Procedures Procedure Description Date Indications Data Source(s) ARTHROCENTESIS ASPIR&/INJECTION MAJOR JT/BURSA 020 12:00:00 AM QUENTIN HART ([facility] ) Influenza immunization was not administe red for reasons documented by clinician (e.g., patient allergy or other medical reasons, patient declined or other patient reasons, vaccine not available or other system reasons) 05/20/2019 12:00:00 AM EST eCW1 ([facility]) Results ID Date Data Source [id number] 05/31/2020 12:00:00 AM EST [facility] Name Value Range Interpretation Code Description Data Aarti rce(s) Supporting Document(s) SARS coronavirus 2 Ag [facility] This lab was ordered by [facility] and reported by [facility]. ID Date Data Source [id number] 04/07/2020 06:20:00 PM EST [facility] ([facility]) Name Value Range Interpretation Code Description Data Aarti rce(s) Supporting Document(s) Bacteria identified in Throat by Culture Laboratory test result MED[facility] ([facility]) FULL REPORT IN LAB NOTES (eCW and Medent ). NORMAL ROLANDO PRESENT ID Date Data Source Urinalysis, no micro 03/21/2020 09:41:56 AM EDT eCW1 ([facility]) Name Value Range Interpretation Code Description Data Aarti rce(s) Supporting Document(s) 1.030 Spec gravity eCW1 ([facility]) 5 pH eCW1 ([facility]) neg Protein eCW1 ([facility]) neg Glucose eCW1 ([facility]) neg Leukocyte eCW1 ([facility]) neg Nitrate eCW1 ([facility]) neg Bilirubin eCW1 ([facility]) neg Urobili eCW1 ([facility] hospital) neg Ketones eCW1 ([facility]) trace Blood eCW1 ([facility]) yes Internal QC Acceptable (Y/N) e CW1 ([facility]) ID Date Data Source [id number] 08/19/2019 12:57:00 PM EDT [facility] Name Value Range Interpretation Code Description Data Aarti rce(s) Supporting Document(s) SARS CORONAVIRUS 2 RNA [facility] This lab was ordered by [facility] and reported by [facility]. ID Date Data Source [id number] 05/17/2019 12:00:00 AM EST [facility] [place] [facility] Patient Name: RENÉ CHIU [id number] [facility] Date of : 1985[place] [address] Date of Exam: 05/17/2019#: Fax: [phone] EXAM: MRI KNEE RIGHT WITHOUT CONTRASTCLINICAL INFORMATION: Knee pain. No trauma.There are no prior right knee MRI's for comparison.3T multiplanar MRI imaging of the right knee was obtained using varioussequences.The anterior and posterior horns of the lateral meniscus are within normallimits. The anterior and posterior horns of the medial meniscus are withinnormal limits. The anterior and posterior cruciate ligaments are intact.The quadriceps and patellar tendons are intact. The medial and lateralcollateral ligaments are intact. The medial and lateral patellarretinacula are intact. There is a fissure within the patellar articularcartilage lateral facet. This is seen in conjunction with mild blistering. The medial and lateral compartmental articular cartilages are onlyslightly thinned. There is a joint effusion. There is no Connor's cyst. Themarrow signal is within normal limits.IMPRESSION:1. 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 Other findings as described above.Accredited by the [employer] in MRMACEY Escoto/Brett you for referring RENÉ CHIU to our office. Electronically Signed - SHANTANU ESPARZA DO 05/18/19 16:32 Name Value Range Interpretation Code Description Data Aarti rce(s) Supporting Document(s) Procedure Social History Code Duration Value Status Description Data Source(s ) Smoking 04/07/2020 12:00:00 AM EST Patient has never smoked co mpleted Patient has never smoked MEDENT ([facility]) Smoking 03/21/2020 12:00:00 AM EDT Never Smoker completed Never S destiny eCW1 ([facility]) Vital Signs ID Date Data Source UNK Name Value Range Interpretation Code Description Data Source(s) Body mass index (BMI) [Ratio] 42.8 kg/m2 42.8 k g/m2 MED[facility] ([facility]) Body height 69 [in_i] 69 [in_i] [facility] 5'9" Body weight 290.00 [lb_av] 290.00 [lb_av] MEDEN T ([facility]) Body temperature 98.1 [degF] 98.1 [degF] [facility] Oxygen saturation in Arterial blood by Pulse oximetry 96 % 96 % [facility] ([facility]) Respiratory rate 16 /min 16 /min [facility] ( [facility]) Heart rate 81 /min 81 /min [facility] Diastolic blood pressure 87 mm[Hg] 87 mm[Hg] [facility] ([facility]) Systolic blood pressure 130 mm[Hg] 130 mm[facility]Hg] [facility] Respiratory rate 16 /min 16 /min MEDENT ( [facility], ) Heart rate 76 /min 76 /min MEDENT ([facility], ) Diastolic blood pressure 90 mm[Hg] 90 mm[Hg] [facility] ([facility], ) Systolic blood pressure 120 mm[Hg] 120 mm[facility]Hg] [facility] Body mass index (BMI) [Ratio] 42.8 kg/m2 42.8 k g/m2 [facility] Body height 69 [in_i] 69 [in_i] MEDENT ([facility]) 5'9" Body weight 290.00 [lb_av] 290.00 [lb_av] MEDEN T ([facility], [facility]) Body temperature 98.1 [degF] 98.1 [degF] MEDENT ([facility], [facility]) Oxygen saturation in Arterial blood by Pulse oximetry 98 % 98 % MEDENT ([facility], [facility]) Respiratory rate 16 /min 16 /min MEDENT ( [facility], [facility]) Heart rate 97 /min 97 /min MEDENT ([facility], [facility]) Diastolic blood pressure 86 mm[Hg] 86 mm[Hg] MEDENT ([facility], [facility]) Systolic blood pressure 126 mm[Hg] 126 mm[Hg] M EDENT ([facility], [facility]) Diastolic blood pressure 70 mm[Hg] 70 mm[Hg] eCW1 ([facility]) Systolic blood pressure 122 mm[Hg] 122 mm[Hg] e CW1 ([facility]) Body temperature 97.8 [degF] 97.8 [degF] eCW1 ( [facility]) Respiratory rate 16 /min 16 /min eCW1 ([facility]) Heart rate 69 /min 69 /min eCW1 ([facility]) Body mass index (BMI) [Ratio] 45.33 kg/m2 45.33 kg/m2 eCW1 ([facility]) Body height 69 [in_i] 69 [in_i] eCW1 ([facility]) Body weight 307 [lb_av] 307 [lb_av] eCW1 ([facility]) Body mass index (BMI) [Ratio] 42.1 kg/m2 42.1 k g/m2 MEDENT ([facility], [facility]) Body height 69 [in_i] 69 [in_i] MEDENT ([facility], [facility]) 5'9" Body weight 285.00 [lb_av] 285.00 [lb_av] MEDEN T ([facility], [facility]) Body temperature 98.4 [degF] 98.4 [degF] MEDENT ([facility], [facility]) Oxygen saturation in Arterial blood by Pulse oximetry 98 % 98 % MEDENT ([facility], [facility]) Heart rate 95 /min 95 /min MEDENT ([facility], [facility]) Diastolic blood pressure 88 mm[Hg] 88 mm[Hg] MEDENT ([facility], [facility]) Systolic blood pressure 140 mm[Hg] 140 mm[Hg] M EDENT ([facility], [facility]) Respiratory rate 16 /min 16 /min MEDENT ( [facility]) Heart rate 76 /min 76 /min MEDENT ([facility], ) Diastolic blood pressure 80 mm[Hg] 80 mm[Hg] MEDENT ([facility], ) Systolic blood pressure 110 mm[Hg] 110 mm[Hg] M EDENT ([facility], ) Diastolic blood pressure 67 mm[Hg] 67 mm[Hg] eCW1 ([facility]) Systolic blood pressure 120 mm[Hg] 120 mm[Hg] e CW1 ([facility]) Body temperature 98.2 [degF] 98.2 [degF] eCW1 ( [facility]) Respiratory rate 18 /min 18 /min eCW1 ([facility]) Heart rate 86 /min 86 /min eCW1 ([facility]) Body mass index (BMI) [Ratio] 44.45 kg/m2 44.45 kg/m2 eCW1 ([facility]) Body height 69 [in_us] 69 [in_us] eCW1 ([facility]) Body weight Measured 301 [lb_av] 301 [lb_av] eC W1 ([facility])
--- OUTSIDE RECORDS SUMMARY | 2020-07-01 11:34 | CCD | Continuity of Care Document ---
Author Author Easton DHILLON P.A.-C. 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 [phone] Problems Description No Information Available Social History [...] Available Vital Signs Date Vital Result Comment 07/19/2019 9:46am BP Systolic 110 mmHg BP Diastolic 80 mmHg Heart Rate 76 /min Respiratory Rate 16 /min 02/09/2018 5:53am BP Systolic 120 mmHg BP Diastolic 70 mmHg Heart Rate 76 /min Respiratory Rate 16 /min Results Description No Information Available Procedures Description No Information Available Medical Devices Description No Information Available Encounters Description No Information Available Assessments Date Code Description Provider 04/17/2020 R40.4 Transient alteration of awarenes s Kim Dhillon P.A.-C. Plan of Treatment 04/17/2020 - Kim Dhillon P.A.-C.* R40.4 Transient alteration of awareness* New Medication:* Ativan 0.5 mg - 1 by mouth one hour prior to mri, may repeat once if necessary Functional Status Description No Information Available Mental Status Description No Information Available Referrals Description No Information Available
--- OUTSIDE RECORDS SUMMARY | 2020-07-01 11:34 | CCD | Continuity of Care Document ---
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
--- OUTSIDE RECORDS SUMMARY | 2020-07-01 11:34 | CCD | Continuity of Care Document ---
Author Easton Cagle Organization Unknown Address [address] [place] [address] [place] [address] Phone [phone] Care Team Providers Care Coal Sample Tester Name Role Phone [employer] [phone] Problems Description No Information Available Social History [...] J06.9 Acute upper respiratory infectio n, unspecified WANAD Silver 04/07/2020 Z20.828 Contact with and (dodson [...]
[2020-07-01] MEDS ORDERED: KETOROLAC 30 MG/ML 1ML VIAL IV ONE (12:00)
[2020-07-01] MEDS ORDERED: NS 1,000 ML IV SCH (12:00)
--- OUTSIDE RECORDS SUMMARY | 2020-07-01 12:03 | CCD ---
Author Author [facility] Organization [facility] Address Unknown Phone Unavailable Care Team Providers Care Guest Services Name Role Phone Marnie Houston, PA-C Unavailable Unavailabl e Fish, [facility], PA-C Unavailable Unavailabl e Fish, [facility], PA-C Unavailable Unavailabl e Fish, [facility], PA-C Unavailable Unavailabl e Fish, [facility], PA-C Unavailable Unavailabl e Fish, [facility], PA-C Unavailable Unavailabl e Fish, [facility], PA-C Unavailable Unavailabl e Fish, [facility], PA-C Unavailable Unavailabl e Fish, [facility], PA-C Unavailable Unavailabl e Fish, [facility], PA-C Unavailable Unavailabl e Fish, [facility], PA-C Unavailable Unavailabl e Fish, [facility], PA-C Unavailable Unavailabl e Fish, [facility], PA-C Unavailable Unavailabl e Fish, [facility], PA-C Unavailable Unavailabl e Fish, [facility], PA-C Unavailable Unavailabl e Fish, [facility], PA-C Unavailable Unavailabl e Fish, [facility], PA-C Unavailable Unavailabl e Fish, [facility], PA-C Unavailable Unavailabl e Fish, [facility], PA-C Unavailable Unavailabl e Fish, [facility], PA-C Unavailable Unavailabl e Fish, [facility], PA-C Unavailable Unavailabl e Fish, [facility], PA-C Unavailable Unavailabl e Fish, [facility], PA-C Unavailable Unavailabl e Fish, [facility], PA-C Unavailable Unavailabl e Fish, [facility], PA-C Unavailable Unavailabl e Fish, [facility], PA-C Unavailable Unavailabl e Fish, [facility], PA-C Unavailable Unavailabl e Fish, [facility], PA-C Unavailable Unavailabl e Fish, [facility], PA-C Unavailable Unavailabl e Fish, [facility], PA-C Unavailable Unavailabl e Fish, [facility], PA-C Unavailable Unavailabl e Fish, [facility], PA-C Unavailable Unavailabl e Fish, Marnie Chastity MPAS, PA-C Unavailable Unavailabl e Trickey, J Kim [...] J Kim PA Unavailable Unavailable Trickey, J Ikm PA Unavailable Unavailable Trickey, J Kim PA [...] Unavailable Trickey, J Kim PA Unavailable Unavailable CelsoMarnie Chastity MPAS, PA-C Unavailable Unavailabl e Fish, [facility], PA-C Unavailable Unavailabl e Fish, [facility], PA-C Unavailable Unavailabl e Fish, [facility], PA-C Unavailable Unavailabl e Fish, [facility], PA-C Unavailable Unavailabl e Fish, [facility], PA-C Unavailable Unavailabl e Fish, [facility], PA-C Unavailable Unavailabl e Fish, [facility], PA-C Unavailable Unavailabl e Fish, [facility], PA-C Unavailable Unavailabl e Fish, [facility], PA-C Unavailable Unavailabl e Fish, [facility], PA-C Unavailable Unavailabl e Fish, [facility], PA-C Unavailable Unavailabl e Fish, [facility], PA-C Unavailable Unavailabl e Fish, [facility], PA-C Unavailable Unavailabl e Fish, [facility], PA-C Unavailable Unavailabl e Fish, [facility], PA-C Unavailable Unavailabl e Fish, [facility], PA-C Unavailable Unavailabl e Fish, [facility], PA-C Unavailable Unavailabl e Fish, [facility], PA-C Unavailable Unavailabl e Fish, [facility], PA-C Unavailable Unavailabl e Fish, [facility], PA-C Unavailable Unavailabl e Fish, [facility], PA-C Unavailable Unavailabl e Fish, [facility], PA-C Unavailable Unavailabl e Fish, [facility], PA-C Unavailable Unavailabl e Fish, [facility], PA-C Unavailable Unavailabl e Fish, [facility], PA-C Unavailable Unavailabl e Fish, [facility], PA-C Unavailable Unavailabl e Fish, [facility], PA-C Unavailable Unavailabl e Fish, [facility], PA-C Unavailable Unavailabl e Fish, [facility], PA-C Unavailable Unavailabl e Fish, [facility], PA-C Unavailable Unavailabl e Fish, [facility], PA-C Unavailable Unavailabl e Fish, Marnie Chastity MPAS, PA-C Unavailable Unavailabl e Campanaro, Mare Qiana [...] Unavailable Dille, E Nathalie DDS Unavailable Unavailable Jarrett Olivas [...] Unavailable LETTIERE, A IVAN PA Unavailable Unavailable Re-disclosure Warning The records that [...] is protected by Article 27-F of the [facility] Public Health law. If you continue you may have access to information: Regarding HIV / AIDS; Provided by facilities licensed or operated by the [facility] Office of Mental Health; or Provided by the [facility] Office for People With Developmental Disabilities. If such information is present, then the following [facility] mandated warning applies: This information has [...] law may result in a fine or senior care sentence or both. A general authorization for [...] IVAN mac 05/31/2020 04:40:00 PM EST MEDENT ([facility], [facility]) Outpatient Attender: Kim Gruber office - [facility] n 04/17/2020 08:30:00 AM EST MEDENT ([facility]) Outpatient Attender: Leigha Peres Prim estefania 04/07/2020 04:35:00 PM EST MEDENT ([facility] [place] [address] [address] 03/21/2020 12:00:00 AM EDT eCW1 (Critical access hospital) Outpatient Attender: Qiana Peres Prim estefania 03/06/2020 05:35:00 PM EDT MEDENT ([facility]) Outpatient Attender: Nathalie Butts [facility] 08/27/2019 09:01:03 P M EDT [facility] Outpatient Attender: Jarrett Olivas MD Physical Therap y 08/17/2019 03:45:00 PM EDT MEDENT ([facility]) Outpatient Attender: Kim MUÑOZ Main office - [facility] n 07/19/2019 07:00:00 AM EST MEDENT ([facility]) Outpatient Attender: Chastity WOODALL PA-C Physical Therapy 07/06/2019 07:45:00 AM EST MEDENT ([facility]) Outpatient Attender: Chastity WOODALL PA-C Physical Therapy 06/03/2019 02:15:00 PM EST MEDENT ([facility]) [facility] [place] [address] [address] 05/31/2019 12:00:00 AM EST eCW1 (Critical access hospital) [facility] [place] [address] [address] 05/20/2019 12:00:00 AM EST eCW1 (Critical access hospital) Outpatient Referrer: Chastity WOODALL PA-C 05/17/2019 05:1 5:00 PM EST [facility] Outpatient Referrer: Chastity WOODALL PA-C 05/17/2019 05:1 4:00 PM EST [facility] Outpatient Referrer: WANDA Hardy-C 05/17/2019 05:0 8:00 PM EST [facility] Outpatient Referrer: Chastity Celso WOODALL PA-C 05/17/2019 05:0 8:00 PM EST [facility] Outpatient Referrer: Chastity Celso WOODALL PA-C 05/17/2019 05:0 8:00 PM EST [facility] Outpatient Referrer: Chastity Celso WOODALL PA-C 05/17/2019 05:0 7:00 PM EST [facility] Outpatient Referrer: Chastity Celso WOODALL PA-C 05/12/2019 09:4 4:00 AM EST [facility] Outpatient Referrer: Chastity Celso WOODALL PA-C 05/04/2019 01:2 6:00 PM EST [facility] Immunizations Vaccine Date Status Description Data Source(s) IIV3. This is one of two codes replacing CVX 15, which is being retired. 05/20/2019 11:55:00 AM EST completed eCW1 ([facility]) Medications Medication Brand Name Start Date Product [...] DAILY DOSE = TWO TABLETS SOLD: 04/18/2020 [facility] Lorazepam 0.5 MG Oral Tablet [Ativan] Ativan 04/17/2020 12:00:00 AM EST ORAL active MEDENT ([facility]) Levofloxacin 750 MG Oral Tablet Levofloxacin 03/06/2020 12:00:00 AM EDT completed MEDENT ([facility]) doxycycline hyclate 100 MG Oral Tablet Doxycycline Hyclate 1 12:00:00 AM EDT ORAL completed MEDENT ([facility], [facility]) 90 mcg/actuation 03/06/2020 12:00:00 AM EDT HFA aerosol inha ler 8 INHALE ONE PUFF BY MOUTH THREE TIMES A DAY NEEDED FOR SHORTNESS OF BREATH OR WHEEZING INHALE ONE PUFF BY MOUTH THREE TIMES A DAY NEEDED FOR SHORTNESS OF BREATH OR WHEEZING SOLD: 03/06/2020 [facility] 60 ACTUAT Albuterol 0.09 MG/ACTUAT Metered Dose Inhaler Albu terol Sulfate HFA 03/06/2020 12:00:00 AM EDT RESPIRATORY active MED[facility] ([facility], [facility]) 750 mg 03/06/2020 12:00:00 AM EDT tablet [...] 06/03/2019 12:00:00 AM EST ORAL active MED[facility] ([facility]) 15 mg 06/03/2019 12:00:00 AM EST tablet 30 TAKE ONE TABLET BY MOUTH EVERY DAY WITH FOOD TAKE ONE TABLET BY MOUTH EVERY DAY WITH FOOD SOLD: 06/03/2019 [facility] Insurance Providers Payer name Policy type / Coverage type Policy ID Covered constitution party ID Covered constitution party's relationship to kamara Policy Kamara Plan Information [place]/[id number] SP [id number] [place]/307 [id number] SP [id number] Excell[employer] BCBS P UNAVAILABLE S UNAV AILABLE EXCELLUS BCBS B [id number] S [id number] EXCELLUS H [id number] Self [id number] [employer] [place]/307 [id number] SP [id number] EXCELLUS H [id number] Self [id number] [employer] BCYO P UNAVAILABLE S UNAV AILABLE Self Pay S UNAVAILABLE S UNAVAILA BLE D [employer] S [id number] S [id number] BS [place] Commercial [id number] Self [id number] BC/BS Of [place] Medigap Part B [id number] Self [id number] [employer] Commercial [id number] Self [id number] BC/BS Of [place] Medigap Part B [id number] Self [id number] [employer] [id number] Self [id number] Sliding Fee Scale P UNAVAILABLE S UNAVAILABLE BC/BS Of [place] Medigap Part B [id number] Self [id number] [employer] [id number] Self [id number] BC/BS Of [place] Medigap Part B [id number] Self [id number] [employer] [id number] Self [id number] BC/BS Of [place] Medigap Part B [id number] Self [id number] [employer] [id number] Self [id number] BC/BS Of [place] Medigap Part B [id number] Self [id number] [employer] [id number] Self [id number] BC/BS Of [place] Medigap Part B [id number] Self [id number] [employer] Commercial [id number] Self [id number] Medicaid Dental S UNAVAILABLE S UN AVAILABLE D [facility] P UNAVAILABLE S UNAVAILABLE D MVP P [id number] S [id number] Self Pay P [id number] S [id number] [place] 302/307 [id number] SP [id number] MVP [id number] SP [id number] MVP EXCHANGE U [id number] Self [id number] [employer] Commercial Ppo Self Pp o MVP Health Plan Commercial Self MVP [id number] SP [id number] MVP H [id number] Self [id number] MVP Commercial Self Medicaid Medicaid Self MEDICAID M [id number] S [id number] MEDICAID M [id number] Self [id number] MEDICAID [id number] SP [id number] MVP H [id number] Self [id number] BCBS [facility] 303/[id number] SP [id number] SELF PAY UNAVAILABLE UNAVAILA BLE EXCELLUS H [id number] Child [id number] BCBS [place] O [id number] C [id number] [place] BC/BS P [id number] S [id number] MVP HEALTH CARE P [id number] S [id number] MVP HMO O [id number] S [id number] [facility] PHY [id number] SP [id number] Surgeries/Procedures Procedure Description Date Indications Data Source(s) ARTHROCENTESIS ASPIR&/INJECTION MAJOR JT/BURSA 020 12:00:00 AM QUENTIN HART ([facility] ) Influenza immunization was not administe red for reasons documented by clinician (e.g., patient allergy or other medical reasons, patient declined or other patient reasons, vaccine not available or other system reasons) 05/20/2019 12:00:00 AM EST eCW1 (Critical access hospital) Results ID Date Data Source [id number] 05/31/2020 12:00:00 AM EST [facility] Name Value Range Interpretation Code Description Data Aarti rce(s) Supporting Document(s) SARS coronavirus 2 Ag [facility] This lab was ordered by [facility] and reported by [facility]. ID Date Data Source [id number] 04/07/2020 06:20:00 PM EST MEDENT ([facility]) Name Value Range Interpretation Code Description Data Aarti rce(s) Supporting Document(s) Bacteria identified in Throat by Culture Laboratory test result MEDENT ([facility]) FULL REPORT IN LAB NOTES (eCW and [facility] ). NORMAL ROLANDO PRESENT ID Date Data Source Urinalysis, no micro 03/21/2020 09:41:56 AM EDT eCW1 ([facility]) Name Value Range Interpretation Code Description Data Aarti rce(s) Supporting Document(s) 1.030 Spec gravity eCW1 ([facility]) 5 pH eCW1 ([facility]) neg Protein eCW1 ([facility]) neg Glucose eCW1 ([facility]) neg Leukocyte eCW1 ([facility]) neg Nitrate eCW1 ([facility]) neg Bilirubin eCW1 ([facility]) neg Urobili eCW1 ([facility]) neg Ketones eCW1 ([facility]) trace Blood eCW1 ([facility]) yes Internal QC Acceptable (Y/N) e CW1 ([facility]) ID Date Data Source [id number] 08/19/2019 12:57:00 PM EDT [facility] Name Value Range Interpretation Code Description Data Aarti rce(s) Supporting Document(s) SARS CORONAVIRUS 2 RNA [facility] This lab was ordered by [facility] and reported by [facility]. ID Date Data Source [id number] 05/17/2019 12:00:00 AM EST [facility] Chastity Houston Pa-C Patient Name: RENÉ CHIU [id number] [facility] 1985[facility] [id number] Date of Exam: 05/17/2019#: Fax: [phone] EXAM: [...] Other findings as described above.Accredited by the [employer] in MRPALAK EscotoJP/[email or web address] you for referring RENÉ CHIU to our office. Electronically Signed - SHANTANU ESPARZA, DO 05/18/19 16:32 Name Value Range Interpretation Code Description Data Aarti rce(s) Supporting Document(s) Procedure Social History Code Duration Value Status Description Data Source(s ) Smoking 04/07/2020 12:00:00 AM EST Patient has never smoked co mpleted Patient has never smoked MEDENT ([facility]) Smoking 03/21/2020 12:00:00 AM EDT Never Smoker completed Never S destiny eCW1 ([facility]) Vital Signs ID Date Data Source UNK Name Value Range Interpretation Code Description Data Source(s) Body mass index (BMI) [Ratio] 42.8 kg/m2 42.8 k g/m2 [facility] ([facility]) Body height 69 [in_i] 69 [in_i] [facility] 5'9" Body weight 290.00 [lb_av] 290.00 [lb_av] MEDEN T ([facility]) Body temperature 98.1 [degF] 98.1 [degF] [facility] Oxygen saturation in Arterial blood by Pulse oximetry 96 % 96 % [facility] ([facility]) Respiratory rate 16 /min 16 /min [facility] ( [facility]) Heart rate 81 /min 81 /min [facility] ([facility]) Diastolic blood pressure 87 mm[Hg] 87 mm[Hg] [facility] ([facility]) Systolic blood pressure 130 mm[Hg] 130 mm[Hg] [facility] ([facility]) Respiratory rate 16 /min 16 /min MEDENT ( [facility], ) Heart rate 76 /min 76 /min [facility] ([facility]) Diastolic blood pressure 90 mm[Hg] 90 mm[Hg] [facility] ([facility]) Systolic blood pressure 120 mm[Hg] 120 mm[Hg] [facility], ) Body mass index (BMI) [Ratio] 42.8 kg/m2 42.8 k g/m2 MEDENT ([facility], [facility]) Body height 69 [in_i] 69 [in_i] MED[facility] ([facility], [facility]) 5'9" Body weight 290.00 [lb_av] 290.00 [lb_av] MEDEN T ([facility], [facility]) Body temperature 98.1 [degF] 98.1 [degF] MEDENT ([facility], [facility]) Oxygen saturation in Arterial blood by Pulse oximetry 98 % 98 % MED[facility] ([facility], [facility]) Respiratory rate 16 /min 16 /min MED[facility] ( [facility], [facility]) Heart rate 97 /min 97 /min MEDENT ([facility], [facility]) Diastolic blood pressure 86 mm[Hg] 86 mm[Hg] MED[facility] ([facility], [facility]) Systolic blood pressure 126 mm[Hg] 126 mm[Hg] M EDENT ([facility], [facility]) Diastolic blood pressure 70 mm[Hg] 70 mm[Hg] eCW1 ([facility]) Systolic blood pressure 122 mm[Hg] 122 mm[Hg] e CW1 ([facility]) Body temperature 97.8 [degF] 97.8 [degF] eCW1 ( [facility]) Respiratory rate 16 /min 16 /min eCW1 ([facility]) Heart rate 69 /min 69 /min eCW1 ([facility]) Body mass index (BMI) [Ratio] 45.33 kg/m2 45.33 kg/m2 W1 ([facility]) Body height 69 [in_i] 69 [in_i] eCW1 ([facility]) Body weight 307 [lb_av] 307 [lb_av] eCW1 ([facility]) Body mass index (BMI) [Ratio] 42.1 kg/m2 42.1 k g/m2 MEDENT ([facility], [facility]) Body height 69 [in_i] 69 [in_i] MEDENT ([facility], [facility]) 5'9" Body weight 285.00 [lb_av] 285.00 [lb_av] MEDEN T ([facility], [facility]) Body temperature 98.4 [degF] 98.4 [degF] MEDENT ([facility], [facility]) Oxygen saturation in Arterial blood by Pulse oximetry 98 % 98 % MED[facility] ([facility], [facility]) Heart rate 95 /min 95 /min MEDENT ([facility], [facility]) Diastolic blood pressure 88 mm[Hg] 88 mm[Hg] MEDENT ([facility], [facility]) Systolic blood pressure 140 mm[Hg] 140 mm[Hg] M EDENT ([facility], [facility]) Respiratory rate 16 /min 16 /min MEDENT ( [facility], ) Heart rate 76 /min 76 /min MEDENT ([facility], ) Diastolic blood pressure 80 mm[Hg] 80 mm[Hg] MEDENT ([facility], ) Systolic blood pressure 110 mm[Hg] 110 mm[Hg] M EDENT ([facility], ) Diastolic blood pressure 67 mm[Hg] 67 mm[Hg] eCW1 ([facility]) Systolic blood pressure 120 mm[Hg] 120 mm[Hg] e CW1 ([facility]) Body temperature 98.2 [degF] 98.2 [degF] eCW1 ( [facility]) Respiratory rate 18 /min 18 /min eCW1 ([facility]) Heart rate 86 /min 86 /min eCW1 ([facility]) Body mass index (BMI) [Ratio] 44.45 kg/m2 44.45 kg/m2 eCW1 ([facility]) Body height 69 [in_us] 69 [in_us] eCW1 ([facility]) Body weight Measured 301 [lb_av] 301 [lb_av] eC W1 ([facility])
[2020-07-01 12:32] LABS: BASO # 0.1 10^3/uL (0.0-0.2); BASO % 0.7 % (0.0-1.0); EOS # 0.3 10^3/uL (0.0-0.5); EOS % 4.1 % (0.0-3.0); HEMATOCRIT 45.2 % (42.0-52.0); HEMOGLOBIN 14.5 g/dl (13.5-17.5); LYMPH # 1.8 10^3/uL (1.5-5.0); LYMPH % 23.6 % (24.0-44.0); MEAN CORPUSCULAR HEMOGLOBIN 27.6 pg (27.0-33.0); MEAN CORPUSCULAR HGB CONC 32.1 g/dl (32.0-36.5); MEAN CORPUSCULAR VOLUME 85.9 fl (80.0-96.0); MONO # 0.6 10^3/uL (0.0-0.8); MONO % 7.7 % (0.0-5.0); NEUTROPHILS # 4.8 10^3/uL (1.5-8.5); NEUTROPHILS % 63.4 % (36.0-66.0); PLATELET COUNT, AUTOMATED 274 10^3/uL (150-450); RED BLOOD COUNT 5.26 10^6/uL (4.30-6.10); WHITE BLOOD COUNT 7.5 10^3/uL (4.0-10.0)
--- NOTE | 2020-07-01 12:56 | REP ---
INDICATION: rt flank pain radiating to the groin. COMPARISON: None. TECHNIQUE: Helical scanning is acquired in 4 mm axial images were reformatted. Coronal and sagittal MPR images were generated and reviewed. FINDINGS: Digital preliminary traffic reporter radiograph is unremarkable. The lung bases are clear on axial CT images. There is mild to moderate diffuse fatty infiltration of the liver. Liver is not felt to be enlarged. No focal splenic lesion is seen. No focal hepatic lesion is observed. Normal adrenal glands are seen bilaterally. No abnormality is noted in the pancreas or the gallbladder. No retroperitoneal mass or adenopathy is seen. Small and large bowel loops are unremarkable in the abdomen and pelvis. A normal appendix is seen in the right lower quadrant. Seminal vesicles and prostate are unremarkable. Urinary bladder is normal in appearance. There is mild right-sided hydronephrosis and hydroureter. There is Farheen ureteral stranding. There is a tiny 2 mm distal ureteral calculus located several cm above the ureterovesical junction on the right side. No left-sided hydronephrosis or hydroureter is seen. There is a tiny intrarenal calculus in the upper pole collecting system of the left kidney. There is a small cyst adjacent to this. No intrarenal calculus is noted on the right. There is a small umbilical hernia trans Doherty abdominal fat. Exam is otherwise unremarkable. IMPRESSION: 1. Mild right-sided hydronephrosis and hydroureter due to a 2 mm obstructive calculus in the distal ureter, several cm above the ureterovesical junction. 2. Intrarenal calculus upper pole left kidney. 3. Fatty infiltration of the liver. 4. Small umbilical hernia. Normal appendix. <Electronically signed by Santos Chatman > 07/01/20 1452
[2020-07-01] MEDS ORDERED: TAMSULOSIN 0.4 MG CAP PO ONE (13:15)
[2020-07-01] MEDS ORDERED: FLOM0.4C39 PO (13:18)
[2020-07-01] MEDS ORDERED: IBUP1TAB7 PO (13:18)
[2020-07-01 13:28] VITALS: BP 137/77
== END 2020-07-01 13:43 | disposition home or self-care (01) ==
LOC: M ED 11:26
DX: N20.0 Calculus of kidney (principal)
CPT/HCPCS: 74176; 80047; 81001; 85025; 87086; 96361; 96374; 99283; J1885

== ENCOUNTER → 2020-07-10 | Outpatient (REF) | payer BC ==
[~2020-07-10] MED LIST changes: +FLOM0.4C39 PO; +IBUP1TAB7 PO
== END ==
LOC: M SFHCLERA 11:33
PROVIDERS: ATTEND Nurse Practitioner Family
DX: N20.1 Calculus of ureter (principal)

== ENCOUNTER → 2020-08-06 | Outpatient (CLI) | payer BC ==
[2020-08-06 10:30] LABS: BASO # 0.1 10^3/uL (0.0-0.2); EOS # 0.3 10^3/uL (0.0-0.5); HEMOGLOBIN 14.3 g/dl (13.5-17.5); LYMPH # 1.6 10^3/uL (1.5-5.0); LYMPH % 24.1 % (24.0-44.0); MEAN CORPUSCULAR HEMOGLOBIN 27.2 pg (27.0-33.0); MEAN CORPUSCULAR HGB CONC 31.8 g/dl (32.0-36.5); MEAN CORPUSCULAR VOLUME 85.7 fl (80.0-96.0); MONO # 0.5 10^3/uL (0.0-0.8); MONO % 7.5 % (2.0-8.0); NEUTROPHILS # 4.3 10^3/uL (1.5-8.5); NEUTROPHILS % 62.8 % (36.0-66.0); PLATELET COUNT, AUTOMATED 262 10^3/uL (150-450); RED BLOOD COUNT 5.25 10^6/uL (4.30-6.10); WHITE BLOOD COUNT 6.8 10^3/uL (4.0-10.0)
[2020-08-06 11:00] LABS: BLOOD UREA NITROGEN 21 MG/DL (7-18); CARBON DIOXIDE LEVEL 30 MEQ/L (21-32); CHLORIDE LEVEL 106 MEQ/L (98-107); CREATININE FOR GFR 0.96 MG/DL (0.70-1.30); GLOMERULAR FILTRATION RATE > 60.0 (>60); GLUCOSE, FASTING 90 MG/DL (70-100); POTASSIUM SERUM 4.4 MEQ/L (3.5-5.1); SODIUM LEVEL 140 MEQ/L (136-145)
[2020-08-06 11:01] LABS: ALBUMIN 3.7 GM/DL (3.2-5.2); ALT/SGPT 63 U/L (12-78); BILIRUBIN,TOTAL 0.3 MG/DL (0.2-1.0); CALCIUM LEVEL 8.9 MG/DL (8.5-10.1); CHOLESTEROL LEVEL 212 MG/DL (<200); CHOLESTEROL RISK RATIO 4.326 (<5); HDL CHOLESTEROL 49 MG/DL (>40); LDL CHOLESTEROL 145 MG/DL (<100); NON-HDL-C 163 MG/DL; TOTAL PROTEIN 6.8 GM/DL (6.4-8.2); TRIGLYCERIDES LEVEL 92 MG/DL (<150)
== END ==
LOC: M LAB 10:05
PROVIDERS: ATTEND Nurse Practitioner Family
DX: R10.9 Unspecified abdominal pain (principal); Z13.220 Encounter for screening for lipoid disorders

== ENCOUNTER 2021-11-30 20:30 | Emergency (ER) | payer BC ==
[~2021-11-30] VITALS: Ht 175.3 cm; Wt 142.4 kg
[2021-11-30 21:14] LABS: VENOUS BASE EXCESS 2.3 (-2.0-2.0); VENOUS HCO3 29.1 MEQ/L (23.0-27.0); VENOUS O2 SATURATION 85.8 % (60.0-80.0); VENOUS PARTIAL PRESSURE CO2 53.5 mmHg (38.0-50.0); VENOUS PARTIAL PRESSURE O2 48.7 mmHg (30.0-50.0); VENOUS PH 7.353 UNITS (7.330-7.430); VENOUS STANDARD HCO3 26.1 MEQ/L; VENOUS TOTAL CO2 30.7 MEQ/L (24.0-28.0)
[2021-11-30 21:16] LABS: BASO % 0.5 % (0.0-1.0); EOS # 0.3 10^3/uL (0.0-0.5); EOS % 3.4 % (0.0-3.0); HEMATOCRIT 45.4 % (42.0-52.0); HEMOGLOBIN 14.9 g/dl (13.5-17.5); LYMPH # 1.8 10^3/uL (1.5-5.0); LYMPH % 22.6 % (24.0-44.0); MEAN CORPUSCULAR HEMOGLOBIN 28.1 pg (27.0-33.0); MEAN CORPUSCULAR HGB CONC 32.8 g/dl (32.0-36.5); MEAN CORPUSCULAR VOLUME 85.5 fl (80.0-96.0); MONO # 0.6 10^3/uL (0.0-0.8); MONO % 8.1 % (2.0-8.0); NEUTROPHILS # 5.1 10^3/uL (1.5-8.5); NEUTROPHILS % 65.1 % (36.0-66.0); PLATELET COUNT, AUTOMATED 275 10^3/uL (150-450); RED BLOOD COUNT 5.31 10^6/uL (4.30-6.10); WHITE BLOOD COUNT 7.8 10^3/uL (4.0-10.0)
[2021-11-30 21:38] LABS: BLOOD UREA NITROGEN 14 MG/DL (7-18); CALCIUM LEVEL 9.1 MG/DL (8.5-10.1); CARBON DIOXIDE LEVEL 30 MEQ/L (21-32); CHLORIDE LEVEL 106 MEQ/L (98-107); CREATININE FOR GFR 1.21 MG/DL (0.70-1.30); GLOMERULAR FILTRATION RATE > 60.0 (>60); GLUCOSE, FASTING 107 MG/DL (70-100); SODIUM LEVEL 141 MEQ/L (136-145)
[2021-11-30 21:41] LABS: CK-MB VALUE MASS < 1.0 NG/ML (<3.6); CPK CREATINE PHOSPHOKINASE 127 U/L (39-308); MB/CK RELATIVE INDEX 0.79 (< OR =4)
[2021-11-30 22:02] LABS: INR 0.95; PROTHROMBIN TIME 13.1 SECONDS (12.7-14.5)
[2021-11-30 22:12] LABS: D-DIMER QUANT < 270 ng/ml (<500)
[2021-11-30 22:47] LABS: CK-MB VALUE MASS < 1.0 NG/ML (<3.6); CPK CREATINE PHOSPHOKINASE 341 U/L (39-308); MB/CK RELATIVE INDEX 0.29 (< OR =4)
[2021-11-30 23:45] VITALS: BP 122/70
== END 2021-12-01 00:31 | disposition home or self-care (01) ==
LOC: M ED 20:30
DX: M79.2 Neuralgia and neuritis, unspecified (principal)

== ENCOUNTER → 2022-01-28 | Outpatient (CLI) | payer BC ==
[2022-01-28 12:28] LABS: BLOOD UREA NITROGEN 13 MG/DL (7-18); CALCIUM LEVEL 9.2 MG/DL (8.5-10.1); CARBON DIOXIDE LEVEL 31 MEQ/L (21-32); CHLORIDE LEVEL 104 MEQ/L (98-107); CHOLESTEROL LEVEL 220 MG/DL (<200); CREATININE FOR GFR 0.93 MG/DL (0.70-1.30); GLOMERULAR FILTRATION RATE > 60.0 (>60); GLUCOSE, FASTING 84 MG/DL (70-100); HDL CHOLESTEROL 50 MG/DL (>40); LDL CHOLESTEROL 143 MG/DL (<100); NON-HDL-C 170 MG/DL; POTASSIUM SERUM 4.7 MEQ/L (3.5-5.1); SODIUM LEVEL 138 MEQ/L (136-145); TRIGLYCERIDES LEVEL 134 MG/DL (<150)
== END ==
LOC: M LAB 10:11
PROVIDERS: ATTEND Family Medicine
DX: E78.5 Hyperlipidemia, unspecified (principal)

== ENCOUNTER 2022-02-24 07:00 | Emergency (ER) | payer BC ==
[~2022-02-24] VITALS: Ht 175.3 cm; Wt 131.8 kg
[2022-02-24 07:01] VITALS: BP 162/89
[2022-02-24] MEDS ORDERED: KETOROLAC 30 MG/ML 1ML VIAL IV ONE (07:30)
[2022-02-24] MEDS ORDERED: ONDANSETRON 4MG 2ML VIAL IV ONE (07:30)
[2022-02-24 07:56] LABS: BASO # 0.1 10^3/uL (0.0-0.2); BASO % 0.7 % (0.0-1.0); EOS # 0.1 10^3/uL (0.0-0.5); EOS % 1.3 % (0.0-3.0); HEMATOCRIT 46.5 % (42.0-52.0); LYMPH # 1.2 10^3/uL (1.5-5.0); LYMPH % 15.8 % (24.0-44.0); MEAN CORPUSCULAR HEMOGLOBIN 27.4 pg (27.0-33.0); MEAN CORPUSCULAR HGB CONC 32.3 g/dl (32.0-36.5); MONO # 0.3 10^3/uL (0.0-0.8); MONO % 4.5 % (2.0-8.0); NEUTROPHILS # 5.8 10^3/uL (1.5-8.5); NEUTROPHILS % 77.2 % (36.0-66.0); PLATELET COUNT, AUTOMATED 295 10^3/uL (150-450); RED BLOOD COUNT 5.47 10^6/uL (4.30-6.10); WHITE BLOOD COUNT 7.5 10^3/uL (4.0-10.0)
[2022-02-24 08:26] LABS: ALBUMIN 3.9 GM/DL (3.2-5.2); BILIRUBIN,DIRECT 0.1 MG/DL (0.0-0.2); BILIRUBIN,TOTAL 0.6 MG/DL (0.2-1.0); TOTAL PROTEIN 7.1 GM/DL (6.4-8.2)
[2022-02-24] MEDS ORDERED: TAMSULOSIN 0.4 MG CAP PO ONE (09:00)
[2022-02-24] MEDS ORDERED: NS 1,000 ML IV ONE (09:00)
[2022-02-24] MEDS ORDERED: FLOM0.4C39 PO (10:10)
[2022-02-24] MEDS ORDERED: KETO10TAB PO (10:11)
== END 2022-02-24 10:55 | disposition home or self-care (01) ==
LOC: M ED 07:00
DX: N28.1 Cyst of kidney, acquired (principal); K76.0 Fatty (change of) liver, not elsewhere classified; N13.2 Hydronephrosis with renal and ureteral calculous obstruction; I51.7 Cardiomegaly
CPT/HCPCS: 74176; 80047; 80076; 81000; 81015; 83690; 85025; 96361; 96374; 99283; J1885; J2405

== ENCOUNTER → 2022-03-26 | Outpatient (CLI) | payer BC ==
[~2022-03-26] MED LIST changes: +KETO10TAB PO
[2022-03-26 17:34] LABS: BASO # 0.1 10^3/uL (0.0-0.2); EOS # 0.3 10^3/uL (0.0-0.5); EOS % 3.8 % (0.0-3.0); HEMATOCRIT 46.4 % (42.0-52.0); HEMOGLOBIN 15.2 g/dl (13.5-17.5); LYMPH % 28.5 % (24.0-44.0); MEAN CORPUSCULAR HEMOGLOBIN 27.9 pg (27.0-33.0); MEAN CORPUSCULAR HGB CONC 32.8 g/dl (32.0-36.5); MEAN CORPUSCULAR VOLUME 85.1 fl (80.0-96.0); MONO # 0.6 10^3/uL (0.0-0.8); MONO % 8.4 % (2.0-8.0); PLATELET COUNT, AUTOMATED 256 10^3/uL (150-450); RED BLOOD COUNT 5.45 10^6/uL (4.30-6.10); WHITE BLOOD COUNT 6.9 10^3/uL (4.0-10.0)
[2022-03-26 18:15] LABS: ERYTHROCYTE SEDIMENTATION RATE 5 mm/hr (0-15)
[2022-03-26 18:49] LABS: ALBUMIN 3.9 GM/DL (3.2-5.2); ALT/SGPT 40 U/L (12-78); BILIRUBIN,TOTAL 0.6 MG/DL (0.2-1.0); BLOOD UREA NITROGEN 17 MG/DL (7-18); CALCIUM LEVEL 8.8 MG/DL (8.5-10.1); CARBON DIOXIDE LEVEL 26 MEQ/L (21-32); CHLORIDE LEVEL 107 MEQ/L (98-107); CREATININE FOR GFR 1.13 MG/DL (0.70-1.30); GLOMERULAR FILTRATION RATE > 60.0 (>60); GLUCOSE, FASTING 78 MG/DL (70-100); POTASSIUM SERUM 4.3 MEQ/L (3.5-5.1); SODIUM LEVEL 140 MEQ/L (136-145); TOTAL PROTEIN 7.1 GM/DL (6.4-8.2)
== END ==
LOC: M RAD 16:55
PROVIDERS: ATTEND Family Medicine
DX: M79.642 Pain in left hand (principal); M79.89 Other specified soft tissue disorders

== ENCOUNTER 2022-10-05 19:14 | Emergency (ER) | payer BC ==
[~2022-10-05] VITALS: Ht 175.3 cm; Wt 143.5 kg
[2022-10-05 19:44] LABS: APPEARANCE, URINE MANUAL CLOUDY (CLEAR); COLOR, URINE MANUAL YELLOW (YELLOW)
[2022-10-05 19:45] LABS: PROTEIN, URINE MANUAL 1+ mg/dL (NEGATIVE)
[2022-10-05] MEDS ORDERED: ONDANSETRON 4MG 2ML VIAL IV ONE (19:45)
[2022-10-05] MEDS ORDERED: MORPHINE 4 MG/ML 1ML VIAL IV ONE (19:45)
[2022-10-05 19:47] LABS: BILIRUBIN, URINE MANUAL 1+ (NEGATIVE); GLUCOSE, URINE (UA) MANUAL NEGATIVE (NEGATIVE); KETONE, URINE MANUAL NEGATIVE (NEGATIVE); LEUKOCYTE ESTERASE, URINE MAN NEGATIVE (NEGATIVE); NITRITE, URINE MANUAL NEGATIVE (NEGATIVE); UROBILINOGEN, URINE MANUAL 1 MG mg/dl (NORMAL)
[2022-10-05 19:48] LABS: BLOOD URINE MANUAL POSITIVE (NEGATIVE)
[2022-10-05 19:49] LABS: AMORPHOUS SEDIMENT, URINE MOD AMOUNT (NEGATIVE); BACTERIA, URINE NONE SEEN; HYALINE CAST, URINE NONE SEEN /lpf (0-1); SQUAMOUS EPITHELIAL CELL URINE NONE SEEN /hpf (SMALL AMT); WBC, URINE NONE SEEN /hpf (0-3)
[2022-10-05 20:21] LABS: BASO # 0.1 10^3/uL (0.0-0.2); BASO % 0.4 % (0.0-1.0); EOS # 0.2 10^3/uL (0.0-0.5); EOS % 1.3 % (0.0-3.0); HEMATOCRIT 46.7 % (42.0-52.0); HEMOGLOBIN 15.4 g/dl (13.5-17.5); LYMPH # 1.3 10^3/uL (1.5-5.0); LYMPH % 11.3 % (24.0-44.0); MEAN CORPUSCULAR HEMOGLOBIN 28.1 pg (27.0-33.0); MEAN CORPUSCULAR VOLUME 85.1 fl (80.0-96.0); MONO # 0.5 10^3/uL (0.0-0.8); MONO % 4.4 % (2.0-8.0); NEUTROPHILS # 9.4 10^3/uL (1.5-8.5); NEUTROPHILS % 82.1 % (36.0-66.0); PLATELET COUNT, AUTOMATED 297 10^3/uL (150-450); RED BLOOD COUNT 5.49 10^6/uL (4.30-6.10); WHITE BLOOD COUNT 11.4 10^3/uL (4.0-10.0)
[2022-10-05 20:47] LABS: LIPASE 22 U/L (12-53)
[2022-10-05 20:49] LABS: ALBUMIN 4.1 G/DL (3.2-5.2); ALKALINE PHOSPHATASE 114 U/L (46-116); ALT/SGPT 50 U/L (7.0-40); AST/SGOT 33 U/L (<34); BILIRUBIN,DIRECT 0.2 MG/DL (<0.4); BILIRUBIN,TOTAL 0.8 MG/DL (0.3-1.2); BLOOD UREA NITROGEN 18 MG/DL (9-23); CALCIUM LEVEL 9.1 MG/DL (8.5-10.1); CARBON DIOXIDE LEVEL 25 MMOL/L (20-31); CHLORIDE LEVEL 104 MMOL/L (98-107); CREATININE FOR GFR 1.12 MG/DL (0.70-1.30); GLOMERULAR FILTRATION RATE > 60.0 (>60); GLUCOSE, FASTING 115 MG/DL (60-100); POTASSIUM SERUM 4.5 MMOL/L (3.5-5.1); SODIUM LEVEL 138 MMOL/L (136-145)
[2022-10-05] MEDS ORDERED: IBUP-1022 PO (21:49)
[2022-10-05] MEDS ORDERED: ONDA4TAB6 PO (21:49)
[2022-10-05 22:02] VITALS: BP 128/70
== END 2022-10-05 22:05 | disposition home or self-care (01) ==
LOC: M ED 19:14
DX: N23 Unspecified renal colic (principal); R31.9 Hematuria, unspecified; N28.1 Cyst of kidney, acquired; Z87.442 Personal history of urinary calculi; Z79.899 Other long term (current) drug therapy
CPT/HCPCS: 74176; 80048; 80076; 81000; 83690; 85025; 96374; 96375; 99284; J2405

== ENCOUNTER → 2022-10-30 | Outpatient (CLI) | payer BC ==
[~2022-10-30] MED LIST changes: +IBUP-1022 PO; +ONDA4TAB6 PO
[2022-10-30 11:20] LABS: APPEARANCE, URINE CLEAR (CLEAR); BACTERIA, URINE AUTO NEGATIVE (NEGATIVE); BILIRUBIN, URINE AUTO NEGATIVE (NEGATIVE); BLOOD, URINE BLOOD 1+ (NEGATIVE); COLOR, URINE YELLOW (YELLOW); GLUCOSE, URINE (UA) AUTO NEGATIVE (NEGATIVE); KETONE, URINE AUTO NEGATIVE (NEGATIVE); LEUKOCYTE ESTERASE, URINE AUTO NEGATIVE (NEGATIVE); NITRITE, URINE AUTO NEGATIVE (NEGATIVE); PROTEIN, URINE AUTO NEGATIVE (NEGATIVE); RBC, URINE AUTO 1 /HPF (0-3); SPECIFIC GRAVITY URINE AUTO 1.021 (1.002-1.035); SQUAMOUS EPITHELIAL CELL UR AU 0 /HPF (0-6); UROBILINOGEN, URINE AUTO 0.2 mg/dL (0.0-2.0); WBC, URINE AUTO 0 /HPF (0-3)
[2022-10-30 11:33] LABS: BASO # 0.1 10^3/uL (0.0-0.2); BASO % 1.4 % (0.0-1.0); EOS # 0.3 10^3/uL (0.0-0.5); EOS % 5.3 % (0.0-3.0); HEMATOCRIT 48.6 % (42.0-52.0); HEMOGLOBIN 15.7 g/dl (13.5-17.5); LYMPH # 1.7 10^3/uL (1.5-5.0); LYMPH % 26.9 % (24.0-44.0); MEAN CORPUSCULAR HEMOGLOBIN 27.7 pg (27.0-33.0); MEAN CORPUSCULAR HGB CONC 32.3 g/dl (32.0-36.5); MEAN CORPUSCULAR VOLUME 85.9 fl (80.0-96.0); MONO # 0.4 10^3/uL (0.0-0.8); MONO % 5.6 % (2.0-8.0); NEUTROPHILS # 3.9 10^3/uL (1.5-8.5); NEUTROPHILS % 60.5 % (36.0-66.0); PLATELET COUNT, AUTOMATED 216 10^3/uL (150-450); RED BLOOD COUNT 5.66 10^6/uL (4.30-6.10); WHITE BLOOD COUNT 6.4 10^3/uL (4.0-10.0)
[2022-10-30 12:00] LABS: HEMOGLOBIN A1c 5.2 % (4.0-6.0)
[2022-10-30 12:04] LABS: ERYTHROCYTE SEDIMENTATION RATE 12 mm/hr (0-15)
[2022-10-30 12:05] LABS: URIC ACID 7.6 MG/DL (3.7-9.2)
[2022-10-30 12:06] LABS: C REACTIVE PROTEIN QUANTITATIV < 0.40 MG/DL (<1.0)
[2022-10-30 12:08] LABS: ALBUMIN 3.8 G/DL (3.2-5.2); ALKALINE PHOSPHATASE 94 U/L (46-116); ALT/SGPT 43 U/L (7.0-40); AST/SGOT 30 U/L (<34); BILIRUBIN,TOTAL 0.6 MG/DL (0.3-1.2); BLOOD UREA NITROGEN 20 MG/DL (9-23); CALCIUM LEVEL 9.1 MG/DL (8.5-10.1); CARBON DIOXIDE LEVEL 25 MMOL/L (20-31); CHLORIDE LEVEL 106 MMOL/L (98-107); CHOLESTEROL LEVEL 196 MG/DL (<200); CHOLESTEROL RISK RATIO 3.97 (<5); CREATININE FOR GFR 0.84 MG/DL (0.70-1.30); FOLATE 7.3 NG/ML (>5.4); FREE T4 1.09 NG/DL (0.89-1.76); GLOMERULAR FILTRATION RATE > 60.0 (>60); GLUCOSE, FASTING 81 MG/DL (60-100); HDL CHOLESTEROL 49.3 MG/DL (>40); LDL CHOLESTEROL 123.3 MG/DL (<100); NON-HDL-C 146.7 MG/DL; POTASSIUM SERUM 4.6 MMOL/L (3.5-5.1); RHEUMATOID FACTOR QUANT < 3.5 IU/ML (<14); SODIUM LEVEL 140 MMOL/L (136-145); TOTAL PROTEIN 6.6 G/DL (5.7-8.2); TRIGLYCERIDES LEVEL 117 MG/DL (<150); VITAMIN B12 LEVEL 333 PG/ML (211-911)
[2022-10-30 12:09] LABS: THYROID STIMULATING HORMONE 1.057 uIU/ML (0.55-4.78)
[2022-10-31 23:07] LABS: ANA (HEP2) Negative (.); CYCLIC CITRULLINATED PEPTIDE 5 units (0-19); HOMOCYST(E)INE SERUM 23.4 umol/L (0.0-14.5)
[2022-11-07 10:10] LABS: HLA-B27 Negative (.); Methylmalonic Acid 147 nmol/L (0-378)
== END ==
LOC: M RAD 09:36
PROVIDERS: ATTEND Physician Assistant
DX: R07.89 Other chest pain (principal); E66.01 Morbid (severe) obesity due to excess calories; N20.0 Calculus of kidney; R20.2 Paresthesia of skin; M25.462 Effusion, left knee; M25.641 Stiffness of right hand, not elsewhere classified

== ENCOUNTER 2022-11-17 19:24 | Emergency (ER) | payer BC ==
[~2022-11-17] VITALS: Ht 175.3 cm; Wt 138.6 kg
[2022-11-17] MEDS ORDERED: NORCO, ANEXSIA 5/325MG TABLET (HYDROcodone/ACETAMINOPHEN) PO ONE (19:55)
[2022-11-17 21:36] VITALS: BP 127/71; TEMP 97.9; O2SAT 97
== END 2022-11-17 21:38 | disposition home or self-care (01) ==
LOC: M ED 19:24
DX: S93.401A Sprain of unspecified ligament of right ankle, initial encounter (principal); W10.9XXA Fall (on) (from) unspecified stairs and steps, initial encounter; Y92.89 Other specified places as the place of occurrence of the external cause; Y93.01 Activity, walking, marching and hiking; Y99.8 Other external cause status; G50.0 Trigeminal neuralgia; Z87.442 Personal history of urinary calculi

== ENCOUNTER → 2023-01-01 | Outpatient (CLI) | payer BC | LOC: M PLAIMG 12:18 | PROVIDERS: ATTEND Physician Assistant | DX: S93.401A Sprain of unspecified ligament of right ankle, initial encounter (principal); Y93.9 Activity, unspecified; Y92.9 Unspecified place or not applicable ==

== ENCOUNTER 2023-10-17 10:00 | Emergency (ER) | payer BC ==
[~2023-10-17] VITALS: Ht 175.3 cm; Wt 139.3 kg
[~2023-10-17 10:00] MED LIST changes: +CARB-115; -CARB200T98
[2023-10-17] MEDS ORDERED: MOME50SP2 (10:13)
[2023-10-17] MEDS ORDERED: ACET-683 PO (10:13)
[2023-10-17] MEDS ORDERED: AZEL1SPR3 (10:13)
[2023-10-17 11:32] LABS: RSV AMPLIFICATION NEGATIVE (NEGATIVE)
[2023-10-17 12:44] LABS: BASO # 0.1 10^3/uL (0.0-0.2); BASO % 0.5 % (0.0-1.0); EOS % 0.1 % (0.0-3.0); HEMATOCRIT 46.8 % (42.0-52.0); HEMOGLOBIN 15.4 g/dl (13.5-17.5); MEAN CORPUSCULAR HEMOGLOBIN 28.4 pg (27.0-33.0); MEAN CORPUSCULAR HGB CONC 32.9 g/dl (32.0-36.5); MEAN CORPUSCULAR VOLUME 86.3 fl (80.0-96.0); MONO # 0.6 10^3/uL (0.0-0.8); MONO % 5.4 % (2.0-8.0); NEUTROPHILS # 9.4 10^3/uL (1.5-8.5); NEUTROPHILS % 84.7 % (36.0-66.0); PLATELET COUNT, AUTOMATED 301 10^3/uL (150-450); RED BLOOD COUNT 5.42 10^6/uL (4.30-6.10)
[2023-10-17 12:53] LABS: LIPASE 22 U/L (12-53)
[2023-10-17 12:56] LABS: ALKALINE PHOSPHATASE 109 U/L (46-116); ALT/SGPT 64 U/L (7.0-40); AST/SGOT 35 U/L (<34); BILIRUBIN,DIRECT 0.3 MG/DL (<0.4); BILIRUBIN,TOTAL 1.1 MG/DL (0.3-1.2); BLOOD UREA NITROGEN 12 MG/DL (9-23); CALCIUM LEVEL 9.3 MG/DL (8.5-10.1); CARBON DIOXIDE LEVEL 28 MMOL/L (20-31); CHLORIDE LEVEL 103 MMOL/L (98-107); CREATININE FOR GFR 0.88 MG/DL (0.70-1.30); GLOMERULAR FILTRATION RATE > 60.0 (>60); GLUCOSE, FASTING 116 MG/DL (60-100); POTASSIUM SERUM 4.1 MMOL/L (3.5-5.1); SODIUM LEVEL 139 MMOL/L (136-145); TOTAL PROTEIN 6.9 G/DL (5.7-8.2)
[2023-10-17] MEDS ORDERED: ISOVUE-370 76% 100ML VIAL As Ordered ONE (13:15)
[2023-10-17] MEDS: NS 1,000 ML IV ONE (13:29)
[2023-10-17] MEDS: ONDANSETRON 4MG 2ML VIAL IV ONE (13:29)
[2023-10-17] MEDS: KETOROLAC 30 MG/ML 1ML VIAL IV ONE (13:46)
[2023-10-17 15:30] VITALS: BP 137/79; TEMP 98.7; O2SAT 97
[2023-10-17] MEDS ORDERED: ONDA4TAB6 PO (16:07)
[2023-10-17] MEDS ORDERED: KETO10TAB PO (16:07)
== END 2023-10-17 16:20 | disposition home or self-care (01) ==
LOC: M ED 10:00
DX: U07.1 COVID-19 (principal); N28.1 Cyst of kidney, acquired; Z87.442 Personal history of urinary calculi
CPT/HCPCS: 74177; 80048; 80076; 81001; 83690; 85025; 87631; 96361; 96374; 96375; 99284; J1885; J2405; Q9967

== ENCOUNTER 2024-01-28 20:21 | Inpatient (IN) | payer BC ==
[~2024-01-28] VITALS: Ht 175.3 cm; Wt 143.2 kg
[~2024-01-28 20:21] MED LIST changes: +ACET-683 PO; +AZEL1SPR3; +MOME50SP2; +ONDA-282 PO; -ONDA4TAB6 PO
[2024-01-28 20:57] LABS: BASO # 0.1 10^3/uL (0.0-0.2); BASO % 0.6 % (0.0-1.0); EOS # 0.3 10^3/uL (0.0-0.5); EOS % 3.3 % (0.0-3.0); HEMATOCRIT 46.6 % (42.0-52.0); HEMOGLOBIN 15.6 g/dl (13.5-17.5); LYMPH # 2.3 10^3/uL (1.5-5.0); LYMPH % 21.8 % (24.0-44.0); MEAN CORPUSCULAR HEMOGLOBIN 28.8 pg (27.0-33.0); MEAN CORPUSCULAR HGB CONC 33.5 g/dl (32.0-36.5); MEAN CORPUSCULAR VOLUME 86.1 fl (80.0-96.0); MONO # 0.7 10^3/uL (0.0-0.8); MONO % 6.9 % (2.0-8.0); NEUTROPHILS # 6.9 10^3/uL (1.5-8.5); PLATELET COUNT, AUTOMATED 247 10^3/uL (150-450); RED BLOOD COUNT 5.41 10^6/uL (4.30-6.10); WHITE BLOOD COUNT 10.3 10^3/uL (4.0-10.0)
[2024-01-28] MEDS ORDERED: ISOVUE-370 76% 100ML VIAL As Ordered ONE (21:17)
[2024-01-28 21:19] LABS: INR 1.01; PARTIAL THROMBOPLASTIN TIME 26.7 SECONDS (24.8-34.2)
[2024-01-28 21:21] LABS: CK-MB VALUE MASS < 1.0 NG/ML (<3.6)
[2024-01-28 21:24] LABS: ALKALINE PHOSPHATASE 136 U/L (46-116); ALT/SGPT 48 U/L (7.0-40); AST/SGOT 33 U/L (<34); BILIRUBIN,DIRECT 0.2 MG/DL (<0.4); BILIRUBIN,TOTAL 0.8 MG/DL (0.3-1.2); BLOOD UREA NITROGEN 16 MG/DL (9-23); CARBON DIOXIDE LEVEL 27 MMOL/L (20-31); CHLORIDE LEVEL 105 MMOL/L (98-107); CREATININE FOR GFR 0.89 MG/DL (0.70-1.30); GLOMERULAR FILTRATION RATE > 60.0 (>60); GLUCOSE, FASTING 117 MG/DL (60-100); POTASSIUM SERUM 4.1 MMOL/L (3.5-5.1); SODIUM LEVEL 139 MMOL/L (136-145); TOTAL PROTEIN 7.4 G/DL (5.7-8.2)
[2024-01-28 21:29] LABS: CPK CREATINE PHOSPHOKINASE 97 U/L (46-171); MB/CK RELATIVE INDEX 1.03 (< OR =4)
[2024-01-28 22:19] LABS: CK-MB VALUE MASS < 1.0 NG/ML (<3.6)
[2024-01-28 22:22] LABS: CPK CREATINE PHOSPHOKINASE 82 U/L (46-171); MB/CK RELATIVE INDEX 1.21 (< OR =4)
[2024-01-28] MEDS ORDERED: HEPARIN SOD (PORCINE) 5000UNITS/ML 1ML VIAL/SYRINGE IV PRN (22:45)
[2024-01-28 22:57] LABS: PROCALCITONIN 0.05 ng/ml
[2024-01-28] MEDS ORDERED: THERTAB52 PO (23:10)
[2024-01-28] MEDS: HEPARIN SOD (PORCINE) 5000UNITS/ML 1ML VIAL/SYRINGE IV ONE (23:18)
[2024-01-28] MEDS ORDERED: HOME MED LIST COMPLETE! XX SCH (23:20)
[2024-01-28] MEDS: HEPARIN DRIP 25,000 UNITS in IV 1 EA IV SCH ×2 (23:21→23:42)
[2024-01-28] MEDS: cefTRIAXone SOD 1 GM in D5W MINI-BAG PLUS 50 ML IV ONE (23:30)
[2024-01-28] MEDS: DOXYCYCLINE HYCLATE 100MG TABLET PO ONE (23:30)
[2024-01-28 23:41] LABS: HEMATOCRIT 44.7 % (42.0-52.0); MEAN CORPUSCULAR HEMOGLOBIN 29.1 pg (27.0-33.0); MEAN CORPUSCULAR HGB CONC 33.6 g/dl (32.0-36.5); MEAN CORPUSCULAR VOLUME 86.6 fl (80.0-96.0); PLATELET COUNT, AUTOMATED 228 10^3/uL (150-450); RED BLOOD COUNT 5.16 10^6/uL (4.30-6.10); WHITE BLOOD COUNT 9.5 10^3/uL (4.0-10.0)
[2024-01-29] VITALS (7 sets, daily range): BP systolic 140–161; BP diastolic 81–100; TEMP 97.8–98.2; O2SAT 92–99
[2024-01-29 05:43] LABS: HEMOGLOBIN 14.6 g/dl (13.5-17.5); MEAN CORPUSCULAR HEMOGLOBIN 28.8 pg (27.0-33.0); MEAN CORPUSCULAR HGB CONC 33.2 g/dl (32.0-36.5); MEAN CORPUSCULAR VOLUME 86.8 fl (80.0-96.0); PLATELET COUNT, AUTOMATED 212 10^3/uL (150-450); RED BLOOD COUNT 5.07 10^6/uL (4.30-6.10); WHITE BLOOD COUNT 8.8 10^3/uL (4.0-10.0)
[2024-01-29 06:13] LABS: ALBUMIN 3.5 G/DL (3.2-5.2); ALKALINE PHOSPHATASE 116 U/L (46-116); ALT/SGPT 39 U/L (7.0-40); AST/SGOT 26 U/L (<34); BILIRUBIN,TOTAL 0.9 MG/DL (0.3-1.2); BLOOD UREA NITROGEN 13 MG/DL (9-23); CALCIUM LEVEL 8.7 MG/DL (8.5-10.1); CARBON DIOXIDE LEVEL 27 MMOL/L (20-31); CHLORIDE LEVEL 107 MMOL/L (98-107); CREATININE FOR GFR 0.76 MG/DL (0.70-1.30); GLOMERULAR FILTRATION RATE > 60.0 (>60); GLUCOSE, FASTING 102 MG/DL (60-100); POTASSIUM SERUM 4.1 MMOL/L (3.5-5.1); SODIUM LEVEL 140 MMOL/L (136-145); TOTAL PROTEIN 6.5 G/DL (5.7-8.2)
[2024-01-29] MEDS: DOXYCYCLINE HYCLATE 100MG TABLET PO SCH (08:13)
[2024-01-29] MEDS: NS 1,000 ML IV SCH (11:00)
[2024-01-29 13:48] LABS: INR 1.04; PARTIAL THROMBOPLASTIN TIME 38.4 SECONDS (24.8-34.2); PROTHROMBIN TIME 13.3 SECONDS (12.5-14.5)
[2024-01-29] MEDS: HEPARIN SOD (PORCINE) 5000UNITS/ML 1ML VIAL/SYRINGE IV PRN (14:21)
[2024-01-29] MEDS: cefTRIAXone SOD 1 GM in D5W MINI-BAG PLUS 50 ML IV SCH (21:31)
[2024-01-30] VITALS (16 sets, daily range): BP systolic 126–147; BP diastolic 62–95; TEMP 97.4–98.4; O2SAT 87–97
[2024-01-30 04:13] LABS: INR 1.15; PARTIAL THROMBOPLASTIN TIME 55.7 SECONDS (24.8-34.2); PROTHROMBIN TIME 14.4 SECONDS (12.5-14.5)
[2024-01-30 04:21] LABS: HEMATOCRIT 43.9 % (42.0-52.0); HEMOGLOBIN 14.7 g/dl (13.5-17.5); MEAN CORPUSCULAR HEMOGLOBIN 28.7 pg (27.0-33.0); MEAN CORPUSCULAR HGB CONC 33.5 g/dl (32.0-36.5); MEAN CORPUSCULAR VOLUME 85.7 fl (80.0-96.0); PLATELET COUNT, AUTOMATED 239 10^3/uL (150-450); RED BLOOD COUNT 5.12 10^6/uL (4.30-6.10)
[2024-01-30] MEDS: NS 1,000 ML IV SCH (08:49)
[2024-01-30] MEDS: PANTOPRAZOLE 40MG VIAL IV SCH (09:50)
[2024-01-30] MEDS: ONDANSETRON 4MG 2ML VIAL IV PRN (09:50)
[2024-01-30] MEDS ORDERED: fentaNYL 100 MCG/2 ML INJECTION As Ordered ONE (14:24)
[2024-01-30] MEDS ORDERED: ISOVUE-300 61% 100ML VIAL As Ordered ONE (14:25)
[2024-01-30] MEDS ORDERED: HEPARIN 1,000UNITS/ML 10ML VIAL (FOR RADIOLOGY & DIALYSIS ONLY) As Ordered ONE (14:25)
[2024-01-30] MEDS ORDERED: LIDOCAINE 1% MDV 20ML VIAL As Ordered ONE (14:25)
[2024-01-30] MEDS ORDERED: MIDAZOLAM INJ 2MG/2ML VIAL As Ordered ONE (14:25)
[2024-01-30] MEDS ORDERED: NS 1,000 ML IV SCH ×2 (14:40→17:15)
[2024-01-30] MEDS ORDERED: ACETAMINOPHEN 325 MG TAB As Ordered ONE (14:45)
[2024-01-30] MEDS: ACETAMINOPHEN TAB 650MG DOSE (2X325MG) PO PRN (14:50)
[2024-01-30] MEDS ORDERED: ELIQ5TAB PO (15:29)
[2024-01-30] MEDS ORDERED: hydrALAZINE 20MG/ML 1ML VIAL As Ordered ONE (15:36)
[2024-01-30] MEDS: IBUPROFEN 400MG TAB PO ONE (18:01)
[2024-01-30] MEDS: FLUTICASONE PROP 0.05% NASAL SPRAY 16 GM (FLONASE) NARES SCH (22:52)
[2024-01-31] VITALS: BP 139/75; TEMP 97.3; O2SAT 95
[2024-01-31 04:00] VITALS: BP 142/80; TEMP 98.8; O2SAT 95
[2024-01-31 07:34] LABS: HEMATOCRIT 41.5 % (42.0-52.0); HEMOGLOBIN 14.1 g/dl (13.5-17.5); MEAN CORPUSCULAR HEMOGLOBIN 29.1 pg (27.0-33.0); MEAN CORPUSCULAR VOLUME 85.6 fl (80.0-96.0); PLATELET COUNT, AUTOMATED 227 10^3/uL (150-450); RED BLOOD COUNT 4.85 10^6/uL (4.30-6.10); WHITE BLOOD COUNT 7.3 10^3/uL (4.0-10.0)
[2024-01-31 08:00] VITALS: BP 148/80; TEMP 97.5; O2SAT 96
[2024-01-31 08:10] VITALS: O2SAT 92
[2024-01-31] MEDS ORDERED: LEVO1TAB40 PO (10:17)
[2024-01-31] MEDS: APIXABAN 5 MG TAB (ELIQUIS) PO SCH (11:03)
== END 2024-01-31 12:45 | disposition home or self-care (01) | DRG 134 ==
LOC: M ED 20:21 → M ED INP 23:33 → M ICU 01-29 09:14
PROVIDERS: ADMIT Family Medicine; ATTEND Family Medicine
PROC: B246ZZZ Ultrasonography of Right and Left Heart (ICD-10-PCS; 2024-01-29)
PROC: B30SZZZ Plain Radiography of Right Pulmonary Artery (ICD-10-PCS; 2024-01-30)
PROC: 03JY3ZZ Inspection of Upper Artery, Percutaneous Approach (ICD-10-PCS; principal; 2024-01-30 15:00)
DX: I26.99 Other pulmonary embolism without acute cor pulmonale (principal); J18.9 Pneumonia, unspecified organism; I27.20 Pulmonary hypertension, unspecified; I82.431 Acute embolism and thrombosis of right popliteal vein; I82.441 Acute embolism and thrombosis of right tibial vein

== ENCOUNTER 2024-03-01 16:16 | Emergency (ER) | payer BC ==
[~2024-03-01] VITALS: Ht 175.3 cm; Wt 145.1 kg
[~2024-03-01 16:16] MED LIST changes: +ELIQ5TAB PO; +LEVO1TAB40 PO; +THERTAB52 PO
[2024-03-01 18:02] LABS: APPEARANCE, URINE CLOUDY (CLEAR); BACTERIA, URINE AUTO 1+ (NEGATIVE); BILIRUBIN, URINE AUTO NEGATIVE (NEGATIVE); BLOOD, URINE BLOOD 3+ (NEGATIVE); COLOR, URINE AMBER (YELLOW); GLUCOSE, URINE (UA) AUTO NEGATIVE (NEGATIVE); KETONE, URINE AUTO NEGATIVE (NEGATIVE); LEUKOCYTE ESTERASE, URINE AUTO NEGATIVE (NEGATIVE); MUCUS, URINE SMALL (NEGATIVE); NITRITE, URINE AUTO NEGATIVE (NEGATIVE); PROTEIN, URINE AUTO 2+ mg/dL (NEGATIVE); RBC, URINE AUTO TNTC /HPF (0-3); SPECIFIC GRAVITY URINE AUTO 1.026 (1.002-1.035); SQUAMOUS EPITHELIAL CELL UR AU 0 /HPF (0-6); UROBILINOGEN, URINE AUTO 0.2 mg/dL (0.0-2.0); WBC, URINE AUTO TNTC /HPF (0-3)
[2024-03-01 18:03] LABS: BASO # 0.1 10^3/uL (0.0-0.2); BASO % 0.9 % (0.0-1.0); EOS # 0.3 10^3/uL (0.0-0.5); EOS % 4.1 % (0.0-3.0); HEMOGLOBIN 15.4 g/dl (13.5-17.5); LYMPH # 1.9 10^3/uL (1.5-5.0); LYMPH % 24.1 % (24.0-44.0); MEAN CORPUSCULAR HGB CONC 32.8 g/dl (32.0-36.5); MEAN CORPUSCULAR VOLUME 85.5 fl (80.0-96.0); MONO # 0.5 10^3/uL (0.0-0.8); MONO % 6.9 % (2.0-8.0); NEUTROPHILS % 63.7 % (36.0-66.0); PLATELET COUNT, AUTOMATED 295 10^3/uL (150-450); WHITE BLOOD COUNT 7.8 10^3/uL (4.0-10.0)
[2024-03-01 18:15] LABS: INR 1.1; PROTHROMBIN TIME 13.9 SECONDS (12.5-14.5)
[2024-03-01 18:26] LABS: ALBUMIN 4.1 G/DL (3.2-5.2); ALKALINE PHOSPHATASE 112 U/L (46-116); ALT/SGPT 57 U/L (7.0-40); AST/SGOT 32 U/L (<34); BILIRUBIN,TOTAL 0.6 MG/DL (0.3-1.2); BLOOD UREA NITROGEN 14 MG/DL (9-23); CALCIUM LEVEL 9.5 MG/DL (8.5-10.1); CARBON DIOXIDE LEVEL 25 MMOL/L (20-31); CHLORIDE LEVEL 105 MMOL/L (98-107); CREATININE FOR GFR 0.78 MG/DL (0.70-1.30); GLOMERULAR FILTRATION RATE > 60.0 (>60); GLUCOSE, FASTING 86 MG/DL (60-100); POTASSIUM SERUM 4.1 MMOL/L (3.5-5.1); SODIUM LEVEL 137 MMOL/L (136-145); TOTAL PROTEIN 7.4 G/DL (5.7-8.2)
[2024-03-01 20:17] VITALS: BP 143/87; TEMP 97.6; O2SAT 99
[2024-03-01] MEDS ORDERED: DOXY-441 PO (20:33)
== END 2024-03-01 21:08 | disposition home or self-care (01) ==
LOC: M ED 16:16
DX: N30.01 Acute cystitis with hematuria (principal); Z79.01 Long term (current) use of anticoagulants; Z79.2 Long term (current) use of antibiotics; Z79.810 Long term (current) use of selective estrogen receptor modulators (SERMs); Z79.899 Other long term (current) drug therapy

== ENCOUNTER → 2024-03-03 | Outpatient (POV) | payer BC ==
[~2024-03-03] VITALS: Ht 175.3 cm; Wt 145.0 kg
[~2024-03-03] MED LIST changes: +DOXY-441 PO
[2024-03-03 15:00] VITALS: BP 128/74; O2SAT 96
== END ==
LOC: M IRPOV 14:41
PROVIDERS: ATTEND Radiology Diagnostic Radiology
DX: Z48.812 Encounter for surgical aftercare following surgery on the circulatory system (principal); N28.1 Cyst of kidney, acquired; Z79.01 Long term (current) use of anticoagulants; Z79.899 Other long term (current) drug therapy; Z86.711 Personal history of pulmonary embolism; Z86.718 Personal history of other venous thrombosis and embolism; Z87.440 Personal history of urinary (tract) infections; Z87.442 Personal history of urinary calculi

== ENCOUNTER → 2024-03-26 | Outpatient (REF) | payer BC | LOC: M SFHCLERA 08:42 | PROVIDERS: ATTEND Physician Assistant | DX: R31.0 Gross hematuria (principal) ==

== ENCOUNTER → 2024-04-16 | Outpatient (REF) | payer BC | LOC: M SMT 12:54 | PROVIDERS: ATTEND Physician Assistant | DX: R31.0 Gross hematuria (principal) ==

== ENCOUNTER → 2024-08-19 | Outpatient (CLI) | payer BC ==
[2024-08-19 11:22] LABS: BASO # 0.1 10^3/uL (0.0-0.2); BASO % 1.2 % (0.0-1.0); EOS # 0.3 10^3/uL (0.0-0.5); EOS % 4.9 % (0.0-3.0); HEMATOCRIT 47.8 % (42.0-52.0); HEMOGLOBIN 15.7 g/dl (13.5-17.5); LYMPH # 1.5 10^3/uL (1.5-5.0); LYMPH % 26.2 % (24.0-44.0); MEAN CORPUSCULAR HEMOGLOBIN 28.4 pg (27.0-33.0); MEAN CORPUSCULAR HGB CONC 32.8 g/dl (32.0-36.5); MEAN CORPUSCULAR VOLUME 86.6 fl (80.0-96.0); MONO # 0.4 10^3/uL (0.0-0.8); MONO % 6.7 % (2.0-8.0); NEUTROPHILS # 3.5 10^3/uL (1.5-8.5); NEUTROPHILS % 60.6 % (36.0-66.0); PLATELET COUNT, AUTOMATED 306 10^3/uL (150-450); RED BLOOD COUNT 5.52 10^6/uL (4.30-6.10); WHITE BLOOD COUNT 5.7 10^3/uL (4.0-10.0)
[2024-08-19 11:58] LABS: ALBUMIN 4.1 G/DL (3.2-5.2); ALKALINE PHOSPHATASE 109 U/L (40-129); ALT/SGPT 76 U/L (7.0-40); AST/SGOT 43 U/L (<34); BILIRUBIN,TOTAL 0.9 MG/DL (0.3-1.2); BLOOD UREA NITROGEN 13 MG/DL (9-23); CALCIUM LEVEL 9.5 MG/DL (8.5-10.1); CARBON DIOXIDE LEVEL 29 MMOL/L (20-31); CHLORIDE LEVEL 103 MMOL/L (98-107); CHOLESTEROL LEVEL 209 MG/DL (<200); CHOLESTEROL RISK RATIO 3.98 (<5); CREATININE FOR GFR 0.78 MG/DL (0.70-1.30); GLOMERULAR FILTRATION RATE > 60.0 (>60); GLUCOSE, FASTING 84 MG/DL (60-100); HDL CHOLESTEROL 52.4 MG/DL (>40); LDL CHOLESTEROL 132.2 MG/DL (<100); NON-HDL-C 156.6 MG/DL; POTASSIUM SERUM 4.6 MMOL/L (3.5-5.1); SODIUM LEVEL 140 MMOL/L (136-145); THYROID STIMULATING HORMONE 1.454 uIU/ML (0.55-4.78); TOTAL PROTEIN 7.4 G/DL (5.7-8.2); TRIGLYCERIDES LEVEL 122 MG/DL (<150)
[2024-08-19 12:01] LABS: HEMOGLOBIN A1c 4.9 % (4.0-6.0)
== END ==
LOC: M LAB 09:25
DX: Z00.00 Encounter for general adult medical examination without abnormal findings (principal); Z86.711 Personal history of pulmonary embolism; Z86.718 Personal history of other venous thrombosis and embolism

== ENCOUNTER → 2025-01-05 | Outpatient (CLI) | payer BC ==
[~2025-01-05] MED LIST changes: -FLOM0.4C39 PO; +TAMS-18 PO
== END ==
LOC: M RAD 06:38
PROVIDERS: ATTEND Family Medicine
DX: K42.9 Umbilical hernia without obstruction or gangrene (principal)

== ENCOUNTER → 2025-02-04 | Outpatient (CLI) | payer BC ==
[~2025-02-04] MED LIST changes: -IBUP-1022 PO; +IBUP600T42 PO
[2025-02-04 18:03] LABS: AMORPHOUS SEDIMENT LARGE (NEGATIVE); APPEARANCE, URINE TURBID (CLEAR); BACTERIA, URINE AUTO NEGATIVE (NEGATIVE); BILIRUBIN, URINE AUTO NEGATIVE (NEGATIVE); BLOOD, URINE BLOOD NEGATIVE (NEGATIVE); GLUCOSE, URINE (UA) AUTO NEGATIVE (NEGATIVE); KETONE, URINE AUTO NEGATIVE (NEGATIVE); LEUKOCYTE ESTERASE, URINE AUTO NEGATIVE (NEGATIVE); MUCUS, URINE SMALL (NEGATIVE); NITRITE, URINE AUTO NEGATIVE (NEGATIVE); PROTEIN, URINE AUTO NEGATIVE (NEGATIVE); RBC, URINE AUTO 0 /HPF (0-3); SPECIFIC GRAVITY URINE AUTO 1.025 (1.002-1.035); SQUAMOUS EPITHELIAL CELL UR AU 0 /HPF (0-6); UROBILINOGEN, URINE AUTO 0.2 mg/dL (0.0-2.0); WBC, URINE AUTO 0 /HPF (0-3)
== END ==
LOC: M PLAIMG 14:03
PROVIDERS: ATTEND Physician Assistant
DX: Z87.442 Personal history of urinary calculi (principal); Z87.898 Personal history of other specified conditions